=== PATIENT | male | born 1980 | race Asian ===

== ENCOUNTER → 2017-05-31 | Outpatient (CLI) | payer OTHER ==
--- NOTE | 2017-05-31 13:42 | DIAGNOSTIC IMAGING REPORT ---
R KNEE 1 OR 2 VIEWS ROUTINE CLINICAL HISTORY: M25.569 right knee pain COMPARISON: None. DISCUSSION: No fractures or dislocations are visualized. There are no erosive or destructive changes. IMPRESSION: 1. No fractures or dislocations identified 2. No erosive or destructive lesions are visualized Electronically signed by: Theodore Wilson M.D. 05/31/2017 1:41 PM Dictated Date/Time: 05/31/2017 1:40 PM
--- NOTE | 2017-05-31 13:43 | DIAGNOSTIC IMAGING REPORT ---
LEFT KNEE 2 VIEWS HISTORY: M25.569 Knee pain [id number] COMPARISON: None. FINDINGS: There is no fracture or dislocation. Soft tissues are unremarkable. No significant knee effusion. Cartilage spaces are maintained for age. IMPRESSION: Unremarkable left knee by conventional radiographic technique. Electronically signed by: Adonis Verdin M.D. 05/31/2017 1:42 PM Dictated Date/Time: 05/31/2017 1:40 PM
== END | disposition home or self-care (01) ==
LOC: C.RAD1850 13:29
PROVIDERS: ATTEND Internal Medicine
DX: M25.569 Pain in unspecified knee (principal)

== ENCOUNTER 2023-06-13 14:19 | Observation (INO) ==
[2023-06-13] MEDS ORDERED: KETOROLAC TROMETHAMINE 15 MG/ML VIAL IV STA (14:26)
[2023-06-13] MEDS ORDERED: SODIUM CHLORIDE 0.9% 1,000 ML IV STA (14:26)
[2023-06-13] MEDS ORDERED: ONDANSETRON INJ 2 MG/ML 2 ML VIAL IV STA (14:26)
--- NOTE | 2023-06-13 14:26 | ED Triage Note ---
Date of Service June 13, 2023 Provider in Triage Author: Fransisca Munoz History of Present Illness This patient was briefly evaluated while in triage. An abbreviated physical exam was performed. This patient is a 42-year-old Male who presents to the ED for evaluation of abdominal pain. Symptoms started early this morning. Notes pain all over. reports nausea, no vomiting. Denies fever/chills, diarrhea. 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 Physical Exam Constitutional: alert and oriented x3. no acute distress. HEENT: normocephalic, atraumatic. normal conjunctiva.PERRLA. EOM's grossly intact. Respiratory: equal chest rise. normal respiratory effort, no accessory muscle use. Cardiovascular: normal heart sounds without murmur. regular rate and rhythm. MSK: moves all 4 extremities spontaneously Psych:appropriate mood and affect. Initial orders for labs and / or imaging were placed and patient was placed in the waiting area until a bed is available. Please see further documentation for the full ED course.
[2023-06-13 16:24] LABS: Basophils # (auto) 0.03 K/uL (0.00-0.20); Basophils % (auto) 0.3 %; Eosinophils # (auto) 0.02 K/uL (0.00-0.50); Eosinophils % (auto) 0.2 %; Hematocrit (blood only) 40.1 % (42.0-52.0); Hemoglobin 14.5 g/dl (14.0-18.0); Immature Granulocytes # (auto) 0.03 K/uL (0.01-0.20); Immature Granulocytes % (auto) 0.3 %; Lymphocytes # (auto) 1.42 K/uL (1.20-3.40); Lymphocytes % (auto) 11.9 %; Mean Corpuscular Hemoglobin 32.4 pg (25.0-34.0); Mean Corpuscular Hgb Conc 36.2 g/dL (32.0-36.0); Mean Corpuscular Volume 89.7 fL (80.0-100.0); Mean Platelet Volume 9.4 fL (9.4-12.4); Monocytes # (auto) 1.15 K/uL (0.11-0.59); Monocytes % (auto) 9.7 %; Neutrophils # (auto) 9.25 K/uL (1.40-6.50); Neutrophils % (auto) 77.6 %; Platelet Count 326 K/uL (130-400); RDW Standard Deviation 39.8 fL (36.4-46.3); Red Blood Count 4.47 M/uL (4.70-6.10)
[2023-06-13 16:34] LABS: Albumin Globulin Ratio 1.9 (0.9-2); BUN Creatinine Ratio 13.3 (10-20); Bilirubin,Total 0.5 mg/dl (0.2-1.0); Creatinine Clr Calc Pharmacy 115.4 ml/min; Est GFR (African American) 109.8 ml/min; Est GFR (Non-African American) 94.7 ml/min; Globulin 2.7 gm/dl (2.5-4.0); Total Protein 7.7 gm/dl (6.0-8.3)
[2023-06-13] MEDS ORDERED: OPTIRAY 320 500ml IV ONE (17:17)
--- NOTE | 2023-06-13 17:21 | XRay Report ---
XR chest 1V not portable CLINICAL HISTORY: abd pain TECHNIQUE: Single frontal radiograph of the chest was obtained. Comparison: Comparison is made to rib series 04/11/2011 FINDINGS: No lines and tubes are seen. The cardiomediastinal silhouette is normal. The lungs are clear. No evid ence of pleural effusion or pneumothorax. IMPRESSION: No acute chest disease. ACT 112: Negative or not required by law. Electronically signed by: Osmin Pal M.D. 06/13/2023 5:20 PM
--- NOTE | 2023-06-13 18:42 | CT Scan Report ---
CT abd pelvis IV con only CLINICAL HISTORY: generalized abd pain TECHNIQUE: Helical axial images of the abdomen and pelvis were obtained and displayed. Automated dose lowering techniques and/or adjustment according to patient size were utilized for this exam. This e xam was performed with intravenous contrast. CT DOSE: 1516.08 mGy.cm COMPARISON: None available at the time of this dictation. FINDINGS: Lower chest: Bibasilar atelectasis versus scarring is seen. Liver: Unremarkable. No focal lesions are seen. Gallbladder and biliary tree: No calcified gallstones. Normal caliber wall. No intra- or extrahepatic biliary ductal dilation. Pancreas: Unremarkable, no focal lesions. Spleen: Unremarkable. Adrenals: Unremarkable. Kidneys and ureters: Nonobstructive nephrolithiasis is seen. Bladder: Unremarkable. Reproductive organs: Unremarkable. Bowel: Enlarged appendix measures 11 mm with associated stranding. Lymph nodes Retroperitoneal: Unremarkable. Pelvic: Unremarkable. Mesenteric: Subcentimeter lymph nodes are noted. Peritoneum: Normal. Vessels: Unremarkable. Abdominal wall: Unremarkable. Bones: Minimal degenerative changes are seen. IMPRESSION: Findings are compatible with acute appendicitis without evidence of perforation or abscess formation. ACT 112: Negative or not required by law. Electronically signed by: Osmin Pal M.D. 06/13/2023 6:39 PM
[2023-06-13] MEDS ORDERED: MoRPHine SULFATE 4 MG/ML 1 ML CARP\\VIAL IV STA (19:02)
--- NOTE | 2023-06-13 19:10 | Emergency Department Note ---
History of Present Illness General Chief complaint: GI Assessment Stated complaint: ABD PAIN Time Seen by Provider: 06/13/23 18:54 History of Present Illness Maximum Pain Intensity: 8 42-year-old male who presents to the emergency department for evaluation of abdominal pain. Patient states he woke up this morning with generalized abdominal pain around 5 AM. He states it was initially crampy but since being in the emergency department has turned into a sharp pain localized to the right side. He denies associated fevers, nausea/vomiting, diarrhea/constipation, chest pain, shortness of breath, urinary symptoms. He took milk of magnesium prior to arrival. He has not taken anything for his pain. Home Medications Medication Instructions Recorded Confirmed Type dextroamphetamine-amphetamine 20 20 mg PO DAILY PRN ADD #30 tabs 05/31/23 06/13/23 Rx mg tablet (Adderall) dextroamphetamine-amphetamine ER 20 mg PO DAILY #30 caps 05/31/23 06/13/23 Rx 20 mg 24hr capsule,extend release (Adderall XR) Allergies Allergy/AdvReac Type Severity Reaction Status Date / Time clarithromycin [From Biaxin] Allergy Verified 07/03/22 12:42 Past Med/Surg History Medical History (Updated 06/13/23 @ 21:30 by Fransisca Munoz PA-C) Encounter for pre-operative examination ADD (attention deficit disorder) Surgical History No pertinent past surgical history Family History Mother Gastric cancer Grandfather Gastric cancer Denies family history of Colon cancer Ovarian cancer Prostate cancer Myocardial infarction Breast cancer Stroke Social History Smoking Status: Never smoker Age Started Using Tobacco: 17; Age Quit Using Tobacco: 28; packs per day: 1; Cigarettes Per Day: 20 to 30 a day for 11 years; Second Hand Exposure: No; Do You Dip or Chew Tobacco: No; Hx Alcohol Use: Yes Alcohol type: beer, wine and hard liquor Hx Substance Use: No Preferred Language: Tunisian Communication Ability: Effective Visual Impairment: No Limitations Hearing Ability: Normal Sulfuric Acid Plant Operator Required: No marital status: Current Living Situation: Spouse current occupational status: employed 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 Feels Safe at Home: Yes Childhood Exposure to Second-Hand Smoke: No Dental Care, Regularly: Yes Physical Activity Frequency: 3-4 Times per Week Seatbelt Use: always Physical Exam Vital Signs Vital Signs - 24 hr 06/13/23 14:23 06/13/23 19:12 06/13/23 19:16 Temperature 36.7 C Temperature Source Temporal Artery Scan Pulse Rate 83 Pulse Rate [Finger] 82 91 H Pulse Rhythm Respiratory Rate 20 20 18 Respiratory Effort / Characteristics Non-Labored Spontaneous Respiratory Depth Normal Blood Pressure 161/99 H Blood Pressure [Left Arm] 167/103 H 126/98 Blood Pressure Mean 119 Blood Pressure Mean [Left Arm] 124 107 Blood Pressure Position Sitting Pulse Oximetry 98 100 100 Oxygen Delivery Method Room Air Sepsis Recent Fever Within 48 Hours No Sepsis New/Unexplained Change in Mental Status No Sepsis Action Taken by Nursing No Action Required 06/13/23 19:20 06/13/23 19:34 Temperature Temperature Source Pulse Rate 87 Pulse Rate [Finger] 90 Pulse Rhythm Regular Respiratory Rate 18 20 Respiratory Effort / Characteristics Respiratory Depth Blood Pressure Blood Pressure [Left Arm] 170/93 H Blood Pressure Mean Blood Pressure Mean [Left Arm] 118 Blood Pressure Position Pulse Oximetry 99 99 Oxygen Delivery Method Room Air Sepsis Recent Fever Within 48 Hours Sepsis New/Unexplained Change in Mental Status Sepsis Action Taken by Nursing Constitutional: alert and oriented x3. no acute distress. nontoxic Respiratory: lungs are clear to auscultation without wheezes, rhonchi, or rales bilaterally. equal chest rise. normal respiratory effort, no accessory muscle use. Cardiovascular: normal heart sounds without murmur. regular rate and rhythm. GI: abdomen is soft, nondistended. Tender to palpation in the right lower quadrant.No palpable masses. No rebound tenderness or guarding. No CVA tenderness MSK: Moves all 4 extremities spontaneously Peripheral vascular: extremities warm and well perfused Psych:appropriate mood and affect. Course Administered Medications Discontinued Medications Sodium Chloride (Nss) 1,000 mls @ 999 mls/hr IV .Q1H1M STA Stop: 06/13/23 15:26 Last Infusion: 06/13/23 19:40 Dose: Infused Documented By: Admin: 06/13/23 15:56 Dose: 999 mls/hr Documented By: ASHANTI Piperacillin Sod/Tazobactam Sod (Zosyn) 4.5 gm in 100 mls @ 200 mls/hr IV NOW ONE Stop: 06/13/23 19:47 Last Infusion: 06/13/23 20:31 Dose: Infused Documented By: Admin: 06/13/23 19:34 Dose: 200 mls/hr Documented By: TESSIE Ioversol (Optiray 320 500ml) 86 ml IV ONCE ONE Stop: 06/13/23 17:18 Last Admin: 06/13/23 17:18 Dose: 86 ml Documented By: GISELA Ketorolac Tromethamine (Ketorolac Tromethamine 15 Mg/Ml Vial) 15 mg IV NOW STA Stop: 06/13/23 14:27 Last Admin: 06/13/23 15:54 Dose: 15 mg Documented By: ASHANTI Morphine Sulfate (Morphine Sulfate 4 Mg/Ml 1 Ml Carp\Vial) 4 mg IV NOW STA Stop: 06/13/23 19:03 Last Admin: 06/13/23 19:13 Dose: 4 mg Documented By: NICKY Ondansetron HCl (Ondansetron Inj 2 Mg/Ml 2 Ml Vial) 4 mg IV NOW STA Stop: 06/13/23 14:27 Last Admin: 06/13/23 15:54 Dose: 4 mg Documented By: ASHANTI Medical Decision Making Differential Diagnosis Appendicitis, testicular torsion, infections, diverticulitis, UTI, obstruction, mesenteric ischemia, aortic pathology, inflammatory bowel disease, renal colic, PUD, pancreatitis, biliary pathology, hernia, volvulus, constipation, as well as other pathologies. Laboratory Data Attestation: I reviewed the patient's lab results. 06/13/23 15:58 06/13/23 15:58 Lab Results 06/13/23 Range/Units 15:58 WBC 11.90 H (4.8-10.8) K/ul RBC 4.47 L (4.70-6.10) M/uL Hgb 14.5 (14.0-18.0) g/dl Hct 40.1 L (42.0-52.0) % MCV 89.7 (80.0-100.0) fL MCH 32.4 (25.0-34.0) pg MCHC 36.2 H (32.0-36.0) g/dL RDW Std Deviation 39.8 (36.4-46.3) fL RDW Coeff of Doni 12.0 (11.5-14.5) % Plt Count 326 (130-400) K/uL MPV 9.4 (9.4-12.4) fL Immature Gran % (Auto) 0.3 % Neut % (Auto) 77.6 % Lymph % (Auto) 11.9 % [place] % (Auto) 9.7 % Eos % (Auto) 0.2 % Baso % (Auto) 0.3 % Neut # (Auto) 9.25 H (1.40-6.50) K/uL Lymph # (Auto) 1.42 (1.20-3.40) K/uL [place] # (Auto) 1.15 H (0.11-0.59) K/uL Eos # (Auto) 0.02 (0.00-0.50) K/uL Baso # (Auto) 0.03 (0.00-0.20) K/uL Immature Gran # (Auto) 0.03 (0.01-0.20) K/uL Sodium 139 (136-145) mmol/L Potassium 4.0 (3.5-5.1) mmol/L Chloride 102 (98-107) mmol/L Carbon Dioxide 30 (21-32) mmol/L Anion Gap 7 (3-11) BUN 13 (6-23) mg/dl Creatinine 0.98 (0.6-1.4) mg/dl Est Cr Clr Drug Dosing 115.4 ml/min Est GFR ( Amer) 109.8 ml/min Est GFR (Non-Af Amer) 94.7 ml/min BUN/Creatinine Ratio 13.3 (10-20) Glucose 113 H (70-99(Fasting)) mg/dl Calcium 10.0 (8.6-10.3) mg/dl Total Bilirubin 0.5 (0.2-1.0) mg/dl AST 17 (13-39) U/L ALT 21 (7-52) U/L Alkaline Phosphatase 68 (34-104) U/L Total Protein 7.7 (6.0-8.3) gm/dl Albumin 5.0 (3.4-5.0) gm/dl Globulin 2.7 (2.5-4.0) gm/dl Albumin/Globulin Ratio 1.9 (0.9-2) Lipase 8 L (11-82) U/L Imaging Data Radiologist's Impression: Abdomen/Pelvis CT 06/13/23 14:26 CT abd pelvis IV con only CLINICAL HISTORY: generalized abd pain TECHNIQUE: Helical axial images of the abdomen and pelvis were obtained and displayed. Automated dose lowering techniques and/or adjustment according to patient size were utilized for this exam. This exam was performed with intravenous contrast. CT DOSE: 1516.08 mGy.cm COMPARISON: None available at the time of this dictation. FINDINGS: Lower chest: Bibasilar atelectasis versus scarring is seen. Liver: Unremarkable. No focal lesions are seen. Gallbladder and biliary tree: No calcified gallstones. Normal caliber wall. No intra- or extrahepatic biliary ductal dilation. Pancreas: Unremarkable, no focal lesions. Spleen: Unremarkable. Adrenals: Unremarkable. Kidneys and ureters: Nonobstructive nephrolithiasis is seen. Bladder: Unremarkable. Reproductive organs: Unremarkable. Bowel: Enlarged appendix measures 11 mm with associated stranding. Lymph nodes Retroperitoneal: Unremarkable. Pelvic: Unremarkable. Mesenteric: Subcentimeter lymph nodes are noted. Peritoneum: Normal. Vessels: Unremarkable. Abdominal wall: Unremarkable. Bones: Minimal degenerative changes are seen. IMPRESSION: Findings are compatible with acute appendicitis without evidence of perforation or abscess formation. ACT 112: Negative or not required by law. Electronically signed by: Osmin Pal M.D. 06/13/2023 6:39 PM Chest X-Ray 06/13/23 14:26 XR chest 1V not portable CLINICAL HISTORY: abd pain TECHNIQUE: Single frontal radiograph of the chest was obtained. Comparison: Comparison is made to rib series 04/11/2011 FINDINGS: No lines and tubes are seen. The cardiomediastinal silhouette is normal. The lungs are clear. No evidence of pleural effusion or pneumothorax. IMPRESSION: No acute chest disease. ACT 112: Negative or not required by law. Electronically signed by: Osmin Pal M.D. 06/13/2023 5:20 PM MDM Narrative 42-year-old male who presents to the emergency department for evaluation of abdominal pain. Reviewed pertinent visits and past medical history performed. Vital signs in ED stable, afebrile. Patient was seen and evaluated as above. IV access was established and labs and imaging were obtained. CBC demonstrates mild leukocytosis of 11.9 with left shift. No acute anemia. CMP without significant electrolyte abnormalities. Renal function within normal limits. LFTs and lipase unremarkable. CT of the abdomen/pelvis was performed and demonstrates acute appendicitis without evidence of perforation or abscess. On exam, patient is nontoxic-appearing in no acute distress. He is diffusely tender throughout the abdomen, worse in the right lower quadrant. No rebound tenderness or guarding. He was initially medicated with IV Toradol, Zofran and 1 L of fluids. Initial orders and medications were ordered while patient was evaluated in triage during a high-volume time. While patient was in the waiting room, CT results had come back and when finally read patient was immediately pulled into a treatment room and updated on exam findings and test results. He did note some mild improvement with the Toradol but continued with abdominal pain. Repeat abdominal exam was nonsurgical. He was informed of findings consistent with acute appendicitis and need for surgical intervention. He was agreeable. Case was discussed with on-call general surgery PA-Jeremy, Jordon Snider, who came to evaluate patient at bedside and recommended emergent surgical intervention. Please see his note for full details and surgical and postoperative treatment plan. Patient was medicated with IV morphine and Zosyn and requested general surgery for preop antibiotics. Patient was taken to the OR in stable condition. Impression & Plan Acute appendicitis Discharge Plan Visit Data Chief Complaint: GI Assessment Stated Complaint: ABD PAIN ED Provider: Shahriar Chen ED Midlevel Provider: Fransisca Munoz Discharge Problem: Acute appendicitis Patient Disposition: Being Evaluated by Surgeon Discharge Instructions Interventions: ED Discharge Assessment Last Done: 06/13/23 20:31
[2023-06-13] MEDS ORDERED: PIPERACILLIN/TAZOBACTAM 4.5 GM/100 ML BAG IV ONE (19:18)
[2023-06-13] MEDS ORDERED: ONDANSETRON INJ 2 MG/ML 2 ML VIAL IV PRN ×2 (19:46→20:49)
[2023-06-13] MEDS ORDERED: SUCCINYLCHOLINE CHLORIDE 20 MG/ML 10 ML VIAL IV ONE (19:46)
[2023-06-13] MEDS ORDERED: ACETAMINOPHEN 1,000 MG/100 ML VIAL IV PRN (19:46)
[2023-06-13] MEDS ORDERED: DEXAMETHASONE SOD INJ 4 MG/ML VIAL ONE (19:46)
[2023-06-13] MEDS ORDERED: PROPOFOL IV EMULSION 10 MG/ML 20 ML VIAL IV ONE (19:46)
[2023-06-13] MEDS ORDERED: LIDOCAINE 2% 2 ML VIAL/AMP(20MG/ML) INFIL ONE (19:46)
[2023-06-13] MEDS ORDERED: ONDANSETRON INJ 2 MG/ML 2 ML VIAL ONE (19:46)
[2023-06-13] MEDS ORDERED: KETOROLAC 30 MG/ML VIAL ONE (19:46)
[2023-06-13] MEDS ORDERED: ROCURONIUM BROMIDE 10 MG/ML 5 ML VIAL IV ONE (19:46)
[2023-06-13] MEDS ORDERED: SUGAMMADEX SODIUM 200 MG/2 ML VIAL IV ONE (19:50)
[2023-06-13] MEDS ORDERED: fentaNYL citrate PF 100 MCG/2 ML VIAL ONE (19:51)
[2023-06-13] MEDS ORDERED: MIDAZOLAM HCL 1 MG/ML 2ML VIAL ONE (19:51)
--- NOTE | 2023-06-13 19:56 | History & Physical Report ---
Date of Service June 13, 2023 Assessment & Plan (1) Acute appendicitis: Plan: Due to the patient's imaging, laboratory findings, as well as presenting symptomatology we will proceed as follows: Analgesia will be provided Antiemetics to be provided N.p.o. status will be implemented IV fluids to be utilized for hydration Patient be given antibioticshe is already received a dose of Zosyn in the emergency department We are tentatively planning on performing an appendectomy with Dr. Portillo this evening. I discussed the risks, benefits, alternatives, and expected postoperative course with the patient and he is willing to proceed Additional recommendations were forthcoming based on operative findings and his postoperative recovery thereafter as above. discussed options/risks. bleeding/infection/injury to an organ/dvt/pe/mi/cva etc... questions answered. will proceed tonight with lap appy. pt agreeable. History of Present Illness Chief Complaint: Acute appendicitis Primary Care Provider: Merlin Gan MD This is a 42-year-old male who presented to the emergency department secondary to abdominal pain that began at approximate 6:00 AM this morning. Patient noted that the pain was little in a generalized fashion throughout his abdomen but is now mostly confined to the right lower quadrant. He did take some milk of magnesia at approximate 2:00 PM with no relief. He has never had any abdominal surgeries before. With his current litany of symptoms he denies any fevers, shakes, or chills. He denies any nausea or vomiting. He does not note any modifying factors to his pain. The patient does note he has not had much in the way of oral intake today other than a few sips of water and milk of magnesia as described above. Since arrival to the hospital the patient has had labs and imaging which independent reviewed. The patient had a CT scan of the abdomen pelvis that kelvin wed patient had findings consistent with acute appendicitis without evidence of perforation the appendix was noted to be enlarged measuring approximately 11 mm with associated fat stranding. Chest x-ray was performed that showed no evidence of pneumonia. Labs include a CBC her white blood cell count was elevated 11.9. Hemoglobin was normal. His hematocrit was slightly low at 40.1. Platelet count was normal. Chemistry profile showed sodium, potassium, BUN, and creatinine were all normal. At the time of my interview the patient was resting comfortably in bed he was in no distress Allergies Allergy/AdvReac Type Severity Reaction Status Date / Time clarithromycin [From Biaxin] Allergy Verified 07/03/22 12:42 Home Medications Medication Instructions Recorded Confirmed Type dextroamphetamine-amphetamine 20 20 mg PO DAILY PRN ADD #30 tabs 05/31/2306/13 Rx mg tablet (Adderall) dextroamphetamine-amphetamine ER 20 mg PO DAILY #30 caps 05/31/23 06/13/23 Rx 20 mg 24hr capsule,extend release (Adderall XR) Past Med/Surg History Medical History (Updated 06/13/23 @ 19:55 by Rodney Bowers PA-C) ADD (attention deficit disorder) Surgical History No pertinent past surgical history Family History Mother Gastric cancer Grandfather Gastric cancer Denies family history of Colon cancer Ovarian cancer Prostate cancer Myocardial infarction Breast cancer Stroke Social History Smoking Status: Never smoker Age Started Using Tobacco: 17; Age Quit Using Tobacco: 28; packs per day: 1; Cigarettes Per Day: 20 to 30 a day for 11 years; Second Hand Exposure: No; Do You Dip or Chew Tobacco: No; Hx Alcohol Use: Yes Alcohol type: beer, wine and hard liquor Hx Substance Use: No Preferred Language: Pakistani Communication Ability: Effective Visual Impairment: No Limitations Hearing Ability: Normal Deputy Commonwealth'S Attorney Required: No marital status: Current Living Situation: Spouse current occupational status: employed 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 Feels Safe at Home: Yes Childhood Exposure to Second-Hand Smoke: No Dental Care, Regularly: Yes Physical Activity Frequency: 3-4 Times per Week Seatbelt Use: always Review of Systems Constitutional: no fever and no chills Eyes: + corrective lenses Ear, Nose, Mouth, Throat: no hearing loss Respiratory: no cough and no dyspnea Cardiovascular: no chest pain Gastrointestinal: as per Subjective / HPI Genitourinary: no dysuria Musculoskeletal: no back pain Integumentary: no rash Neurologic: no localized weakness Physical Exam Constitutional: WD/WN, vitals as above Eyes: Wears glasses ENMT: Ears: no hearing impairment and no external ear abnormality Mouth: no oropharynx abnormality Neck: trachea midline Respiratory: normal respiratory effort, lungs clear to auscultation Cardiovascular: Rate/Rhythm: regular rate and regular rhythm Gastrointestinal (Abdomen): Abdomen is soft with mild distention. Bowel sounds are hypoactive. The patient did have pain with palpation greatest in the right lower quadrant over McBurney's Musculoskeletal: No calf tenderness Skin: no rashes Neurologic: moves all extremities Psychiatric: A+Ox3, euthymic affect Results & Data Results & Data Vital Signs (Past 12 Hours) Vital Signs Temp Pulse Pulse Resp BP BP Pulse Ox 06/13/23 19:34 87 20 99 06/13/23 19:20 90 18 170/93 H 99 06/13/23 19:16 91 H 18 126/98 100 06/13/23 19:12 82 20 167/103 H 100 06/13/23 14:23 36.7 C 83 20 161/99 H 98 O2 Del Method 06/13/23 19:34 Room Air 06/13/23 19:20 06/13/23 19:16 06/13/23 19:12 06/13/23 14:23 Room Air PG Care Time/CCT Total # of Minutes Spent Total Time Spent with Patient: Total time spent is greater than 50% in coordination of care (as documented) at patient's floor/unit and/or counseling patient: Coding Level of Care Code 70527 INT INP/OBS CARE 3/75MIN Diagnoses Acute appendicitis K35.80
[2023-06-13] MEDS ORDERED: PROMETHAZINE HCL 6.25 MG in SODIUM CHLORIDE 0.9% 50 ML IV PRN (20:49)
[2023-06-13] MEDS ORDERED: ePHEDrine sulfate 50 MG/ML AMP IV PRN (20:49)
[2023-06-13] MEDS ORDERED: ATROPINE SULFATE 0.1 MG/ML 10ML SYR IV PRN (20:49)
[2023-06-13] MEDS ORDERED: HYDROmorphone INJ 2 MG/ML SYR/VIAL IV PRN (20:49)
[2023-06-13] MEDS ORDERED: BUPIVACAINE/EPINEPHRINE 0.5% MPF 1:200,000 30 ML VIAL ONE (20:49)
[2023-06-13] MEDS ORDERED: fentaNYL citrate PF 100 MCG/2 ML VIAL IV PRN (20:49)
--- NOTE | 2023-06-13 20:50 | Anesthesiology Consultation ---
Date of Service June 13, 2023 Assessment & Plan (1) Encounter for pre-operative examination: Chart Review Chart Review: Acceptable Risk for Surgery and Patient NOT seen in Pre Admission Testing Consults Requested none History Surgery Operation Date: 06/13/23 21:30 Proposed Procedures p Laparoscopic Appendectomy, possible open - Emigdio Portillo, DO Height/Weight Height: 5 ft 10 in Weight: 98.2 kg Allergies Allergy/AdvReac Type Severity Reaction Status Date / Time clarithromycin [From Biaxin] Allergy Verified 07/03/22 12:42 Medications Home Medications Medication Instructions Recorded Confirmed Last Taken dextroamphetamine-amphetamine 20 20 mg PO DAILY PRN ADD #30 tabs 05/31/23 06/13/23 Unknown mg tablet (Adderall) dextroamphetamine-amphetamine ER 20 mg PO DAILY #30 caps 05/31/23 06/13/23 Unknown 20 mg 24hr capsule,extend release (Adderall XR) NPO Date Last Intake of Fluids: 06/13/23 Time Last Intake of Fluids: 04:00 Date Last Intake of Solids: 06/13/23 Time Last Intake of Solids: 04:00 Past Medical History Medical History (Updated 06/13/23 @ 20:50 by Chao Rivers MD) Encounter for pre-operative examination ADD (attention deficit disorder) Past Family History Family History Mother Gastric cancer Grandfather Gastric cancer Denies family history of Colon cancer Ovarian cancer Prostate cancer Myocardial infarction Breast cancer Stroke Past Surgical History Surgical History No pertinent past surgical history Social History Smoking Status: Never smoker tobacco type: cigarettes Smoking cigarettes per day: 20 to 30 a day for 11 years Do You Dip or Chew Tobacco: No Hx Alcohol Use: Yes Alcohol type: beer, wine and hard liquor Hx Substance Use: No Physical Exam Vital Signs Last Vital Signs Temp 36.7 C 06/13/23 14:23 Pulse 87 06/13/23 19:34 Resp 20 06/13/23 19:34 BP 170/93 H 06/13/23 19:20 Pulse Ox 99 06/13/23 19:34 O2 Del Method Room Air 06/13/23 19:34 Testing Laboratory Results 06/13/23 15:58 06/13/23 15:58
[2023-06-13] MEDS ORDERED: diphenhydrAMINE 50 MG/ML VIAL ONE (21:35)
--- NOTE | 2023-06-13 22:15 | Anesthesiology Progress Note ---
Date of Service June 13, 2023 Anesthesia Post Procedure Vital Signs Vital Signs: Temp Pulse Pulse Resp BP BP Pulse Ox 06/13/23 19:34 87 20 99 06/13/23 19:20 90 18 170/93 H 99 06/13/23 19:16 91 H 18 126/98 100 06/13/23 19:12 82 20 167/103 H 100 06/13/23 14:23 36.7 C 83 20 161/99 H 98 O2 Del Method 06/13/23 19:34 Room Air 06/13/23 19:20 06/13/23 19:16 06/13/23 19:12 06/13/23 14:23 Room Air Pain Intensity Right Lower Abdomen: Pain Intensity: 7 Transfer of Care Handoff Completed per policy Notes Mental Status: alert / awake / arousable and participated in evaluation Patient Amnestic to Procedure: Yes Nausea / Vomiting: adequately controlled Pain: adequately controlled Airway Patency, RR, SpO2: stable & adequate BP & HR: stable & adequate Hydration State: stable & adequate Anesthetic Complications: no major complications apparent and Pt Satisfied with anesthetic care
--- NOTE | 2023-06-13 22:17 | Operative Report ---
PG Post Operative Report Pre & Post Diagnosis Operation Date: 06/13/23 21:30 Pre-Op Diagnosis: Acute appendicitis Post-Op Diagnosis: Acute appendicitis I identified the patient and participated in the time-out.: Yes Procedure Operation Date: 06/13/23 21:30 Actual Procedures p Laparoscopic Appendectomy, Enterolysis(Not Applicable) - Emigdio Portillo DO Surgeon Emigdio Portillo DO Can Slider sonal Bowers Estimated Blood Loss 10 Findings Consistent with Post-Op Diagnosis Specimens appendix Description of Procedure After informed consent was obtained the patient was taken to the operating room and placed in supine position. After successful intubation a Childers catheter was placed and the left arm was tucked. A Childers catheter was inserted sterilely. I began by making a periumbilical incision with an 11 blade scalpel and carried this down through the soft tissue using electrocautery. The anterior rectus fascia was opened using electrocautery and 2 #0 Vicryl stay sutures were placed. The peritoneum was elevated using hemostats and incised under direct vision using a Metzenbaum scissor. A finger sweep was performed. A 12 mm Reddy trocar was placed and the abdomen was insufflated to 18 mmHg. A laparoscope was inserted and the abdomen was examined in 360. A suprapubic 5 mm port and a left lower quadrant 12 mm port were placed under direct vision. The patient was air planed to the left as well as placed in a slight Trendelenburg position. We began by looking in the right lower quadrant. We were able to readily identify the appendix and it was grossly inflamed. It had not perforated. There is a small amount of purulent fluid in the right lower quadrant and the pelvis. We immediately irrigated and suctioned this out. There were adhesions from the terminal ileum to the sidewall. I had to take these down using a laparoscopic scissor so that I could visualize the appendix/base of the cecum. Once I divided the adhesions, I was able to use primarily blunt dissection to pull the appendix away from the right lower quadrant sidewall. I was then able to use a DAVE purple cartridge stapler to transect both the mesentery of the appendix as well as the appendix itself at its base with the cecum. It was then placed into an Endo Catch bag and removed from the camera port site. We thoroughly ir rigated the right lower quadrant as well as the pelvis. There was adequate hemostasis. I ran the small bowel backwards from the terminal ileum for about 6 feet all of which was normal. All the peritoneal surfaces were normal. Small/ large bowel, liver, stomach etc. all appeared grossly normal. We did a final irrigation and then removed all the trochars and desufflated the abdomen. The fascia of the camera port as well as the left lower quadrant were closed using 0 Vicryl in [id number] fashion. Wounds were all irrigated and closed using 4-0 Monocryl. Marcaine was injected around them for postoperative analgesia and skin glue used as a dressing. The patient was awakened extubated and transferred to recovery in stable condition. My physician's school health assistant was present through the entire case. he assisted with prepping the patient and helped with exposure for port placement, helped run the camera and helped with fascial/wound closure at the end of the procedure as well as dressing placement. I attest to the content of the Intraoperative Record and any orders documented therein. Any exceptions are noted below. I attest to the content of the Intraoperative Record and any orders documented therein. Any exceptions are noted below.
[2023-06-13] MEDS ORDERED: DEXTROAMPHETAMINE/AMPHETAMINE IR 20 MG TAB PO PRN (23:02)
[2023-06-13] MEDS: SODIUM CHLORIDE 0.9% 1,000 ML IV SCH (23:16)
[2023-06-14] MEDS: PIPERACILLIN/TAZOBACTAM 4.5 GM in DEXTROSE 5% MINI-B 100 ML IV SCH ×3 (01:05→17:53)
[2023-06-14] MEDS: MoRPHine SULFATE 4 MG/ML 1 ML CARP\\VIAL IV PRN ×2 (01:08→05:12)
[2023-06-14] MEDS: SODIUM CHLORIDE 0.9% 1,000 ML IV SCH ×2 (05:15→13:41)
[2023-06-14 06:32] LABS: Basophils # (auto) 0.01 K/uL (0.00-0.20); Basophils % (auto) 0.1 %; Hematocrit (blood only) 32.4 % (42.0-52.0); Hemoglobin 11.1 g/dl (14.0-18.0); Immature Granulocytes # (auto) 0.07 K/uL (0.01-0.20); Immature Granulocytes % (auto) 0.5 %; Lymphocytes # (auto) 0.62 K/uL (1.20-3.40); Lymphocytes % (auto) 4.7 %; Mean Corpuscular Hemoglobin 31.9 pg (25.0-34.0); Mean Corpuscular Hgb Conc 34.3 g/dL (32.0-36.0); Mean Corpuscular Volume 93.1 fL (80.0-100.0); Mean Platelet Volume 9.2 fL (9.4-12.4); Monocytes # (auto) 1.09 K/uL (0.11-0.59); Monocytes % (auto) 8.2 %; Neutrophils # (auto) 11.47 K/uL (1.40-6.50); Neutrophils % (auto) 86.5 %; Platelet Count 268 K/uL (130-400); RDW Coefficient of Variation 12.3 % (11.5-14.5); Red Blood Count 3.48 M/uL (4.70-6.10); White Blood Count 13.26 K/ul (4.8-10.8)
[2023-06-14 06:39] LABS: BUN Creatinine Ratio 14.3 (10-20); Calcium 8.6 mg/dl (8.6-10.3); Creatinine Clr Calc Pharmacy 122.5 ml/min; Est GFR (African American) 120.1 ml/min; Est GFR (Non-African American) 103.6 ml/min; Potassium 4.2 mmol/L (3.5-5.1)
[2023-06-14] MEDS ORDERED: oxyCODONE HCL IR 5 MG TAB (IMMEDIATE RELEASE) PO PRN ×2 (07:38→08:01)
--- NOTE | 2023-06-14 08:05 | Surgery Progress Note ---
Date of Service June 14, 2023 Assessment & Plan (1) Acute appendicitis: Plan: s/p lap appendectomy wbc 13, vitals stable will add PO pain meds and make IV APAP standing for now adv diet as tolerates if pain controlled and diet tolerated will consider dispo later today f/u in clinic with dr. baeza in 2 weeks doing ok. has not been out of bed yet. still pretty uncomfortable added oral pain meds and ibuprofen. will re-evaluate later today but likely will need an additional day/not ready for d/c Admission and Anticipated Discharge Date Admission Date: June 13, 2023 Subjective Patient having some expected post op pain this AM, controlled with prn meds. Has been taking in clears, no n/v. Voiding well. Physical Exam Physical Exam: awake/alert, no distress Gastrointestinal (Abdomen): Inspection/Auscultation: + abdomen distended (mild) and + abdominal surgical incision (c/d/i with skin glue, some ecchymosis of umbilical incision) Percussion/Palpation: + abdomen tender (joie- incisional discomfort) and abdomen soft Results & Data Vital Signs (Past 12 Hours) Vital Signs Temp Pulse Pulse Resp BP Pulse Ox O2 Del Method 06/14/23 07:35 37.2 C 94 H 12 117/78 96 Room Air 06/14/23 02:30 37.1 C 86 18 128/81 97 Room Air 06/14/23 01:00 36.8 C 81 18 117/67 97 Room Air 06/14/23 00:01 37 C 91 H 16 133/75 97 Room Air 06/13/23 23:20 36.9 C 84 16 130/75 95 Room Air 06/13/23 22:45 36.9 C 86 18 145/78 H 95 Room Air 06/13/23 22:45 36.9 C 86 18 145/78 H 95 Room Air 06/13/23 22:35 36.9 C 96 H 18 138/82 94 Room Air 06/13/23 22:25 88 15 139/75 100 Oxymask 06/13/23 22:15 101 H 20 139/84 100 Oxymask 06/13/23 22:09 36.7 C 108 H 17 157/74 H 100 Oxymask O2 Flow Rate 06/14/23 07:35 06/14/23 02:30 06/14/23 01:00 06/14/23 00:01 06/13/23 23:20 06/13/23 22:45 06/13/23 22:45 06/13/23 22:35 06/13/23 22:25 9 06/13/23 22:15 9 06/13/23 22:09 9 PG Care Time/CCT Total # of Minutes Spent Total Time Spent with Patient: Total time spent is greater than 50% in coordination of care (as documented) at patient's floor/unit and/or counseling patient: Coding Level of Care Code 85136 Post Operative Follow-Up Diagnoses Acute appendicitis K35.80
[2023-06-14] MEDS: ACETAMINOPHEN 1,000 MG/100 ML VIAL IV SCH ×2 (09:24→17:32)
[2023-06-14] MEDS: DEXTROAMPHETAMINE/AMPHETAMINE ER 20 MG CAP PO SCH (09:38)
[2023-06-14] MEDS: IBUPROFEN 600 MG TAB PO SCH ×2 (10:35→17:53)
[2023-06-14 12:02] LABS: Appearance Urine Clear (Clear); Bilirubin Urine Negative (Negative); Blood Urine Negative (Negative); Color Urine Yellow; Glucose Urine UA Negative (Negative); Ketones Urine Negative (Negative); Leukocyte Esterase Urine Negative (Negative); Nitrite Urine Negative (Negative); Protein Urine Negative (Negative); Specific Gravity Urine 1.005 (1.000-1.030); Urobilinogen Urine Negative (Negative); pH Urine 6.5 (4.5-7.5)
--- NOTE | 2023-06-14 19:44 | Electrocardiogram Report ---
Test Reason : Blood Pressure : / mmHG Vent. Rate : 080 BPM Atrial Rate : 080 BPM P-R Int : 172 ms QRS Dur : 080 ms QT Int : 360 ms P-R-T Axes : 039 038 050 degrees QTc Int : 415 ms Normal sinus rhythm Normal ECG No previous ECGs available Confirmed by Abraham White ([id number]) on 06/14/2023 7:44:07 PM Referred By: REFERRED SELF Confirmed By:Patricio White
[2023-06-15] MEDS: SODIUM CHLORIDE 0.9% 1,000 ML IV SCH (00:02)
[2023-06-15] MEDS: ACETAMINOPHEN 1,000 MG/100 ML VIAL IV SCH ×2 (00:03→07:43)
[2023-06-15] MEDS: IBUPROFEN 600 MG TAB PO SCH ×2 (01:07→10:12)
[2023-06-15] MEDS: PIPERACILLIN/TAZOBACTAM 4.5 GM in DEXTROSE 5% MINI-B 100 ML IV SCH ×2 (01:08→10:05)
--- NOTE | 2023-06-15 07:30 | Surgery Progress Note ---
Date of Service June 15, 2023 Assessment & Plan (1) Acute appendicitis: Plan: POD#2 lap appendectomy CBC is pending this AM Pt feels improved since yesterday, pain manageable on current regimen, diet tolerated incisions c/d/i will anticipate dispo to home today pending blood work okay dispo instructions reviewed, f/u in clinic with Dr. Portillo in 2 weeks as above repeat H/H stable 8.7 ok for d/c instructions given. Admission and Anticipated Discharge Date Admission Date: June 13, 2023 Subjective Patient reports feeling well, his pain is improving. He is tolerating a diet, no n/v. Ambulating the halls. Voiding. Physical Exam Physical Exam: awake/alert, no distress Gastrointestinal (Abdomen): Inspection/Auscultation: + abdominal surgical incision (c/d/i with some ecchymosis around umbilical incision) Percussion/Palpation: + abdomen tender (expected joie incisional discomfort) and abdomen soft; no guarding Results & Data Vital Signs (Past 12 Hours) Vital Signs Temp Pulse Resp BP Pulse Ox O2 Del Method 06/15/23 07:06 36.6 C 75 16 116/65 96 Room Air PG Care Time/CCT Total # of Minutes Spent Total Time Spent with Patient: Total time spent is greater than 50% in coordination of care (as documented) at patient's floor/unit and/or counseling patient: Coding Level of Care Code 41790 Post Operative Follow-Up Diagnoses Acute appendicitis K35.80
[2023-06-15 07:40] LABS: Basophils # (auto) 0.03 K/uL (0.00-0.20); Basophils % (auto) 0.4 %; Eosinophils # (auto) 0.05 K/uL (0.00-0.50); Eosinophils % (auto) 0.6 %; Hemoglobin 8.8 g/dl (14.0-18.0); Immature Granulocytes # (auto) 0.03 K/uL (0.01-0.20); Immature Granulocytes % (auto) 0.4 %; Lymphocytes # (auto) 2.13 K/uL (1.20-3.40); Lymphocytes % (auto) 26.6 %; Mean Corpuscular Hemoglobin 32.6 pg (25.0-34.0); Mean Corpuscular Hgb Conc 35.2 g/dL (32.0-36.0); Mean Corpuscular Volume 92.6 fL (80.0-100.0); Mean Platelet Volume 9.3 fL (9.4-12.4); Monocytes # (auto) 0.74 K/uL (0.11-0.59); Monocytes % (auto) 9.3 %; Neutrophils # (auto) 5.02 K/uL (1.40-6.50); Neutrophils % (auto) 62.7 %; Platelet Count 218 K/uL (130-400); RDW Coefficient of Variation 12.1 % (11.5-14.5); RDW Standard Deviation 40.9 fL (36.4-46.3)
[2023-06-15] MEDS: DEXTROAMPHETAMINE/AMPHETAMINE ER 20 MG CAP PO SCH (08:30)
[2023-06-15 12:15] LABS: Basophils # (auto) 0.03 K/uL (0.00-0.20); Basophils % (auto) 0.4 %; Eosinophils # (auto) 0.07 K/uL (0.00-0.50); Hematocrit (blood only) 25.2 % (42.0-52.0); Hemoglobin 8.7 g/dl (14.0-18.0); Immature Granulocytes # (auto) 0.03 K/uL (0.01-0.20); Immature Granulocytes % (auto) 0.4 %; Lymphocytes # (auto) 1.36 K/uL (1.20-3.40); Lymphocytes % (auto) 19.4 %; Mean Corpuscular Hemoglobin 31.9 pg (25.0-34.0); Mean Corpuscular Hgb Conc 34.5 g/dL (32.0-36.0); Mean Corpuscular Volume 92.3 fL (80.0-100.0); Mean Platelet Volume 9.1 fL (9.4-12.4); Monocytes # (auto) 0.71 K/uL (0.11-0.59); Monocytes % (auto) 10.1 %; Neutrophils # (auto) 4.82 K/uL (1.40-6.50); Neutrophils % (auto) 68.7 %; Platelet Count 217 K/uL (130-400); RDW Coefficient of Variation 12.2 % (11.5-14.5); RDW Standard Deviation 40.9 fL (36.4-46.3); Red Blood Count 2.73 M/uL (4.70-6.10); White Blood Count 7.02 K/ul (4.8-10.8)
--- NOTE | 2023-06-18 12:09 | Discharge Summary ---
Date of Service June 15, 2023 Admission HPI Per Admitting Provider This is a 42-year-old male who presented to the emergency department secondary to abdominal pain that began at approximate 6:00 AM this morning. Patient noted that the pain was little in a generalized fashion throughout his abdomen but is now mostly confined to the right lower quadrant. He did take some milk of magnesia at approximate 2:00 PM with no relief. He has never had any abdominal surgeries before. With his current litany of symptoms he denies any fevers, shakes, or chills. He denies any nausea or vomiting. He does not note any modifying factors to his pain. The patient does note he has not had much in the way of oral intake today other than a few sips of water and milk of magnesia as described above. Since arrival to the hospital the patient has had labs and imaging which independent reviewed. The patient had a CT scan of the abdomen pelvis that showed patient had findings consistent with acute appendicitis without evidence of perforation the appendix was noted to be enlarged measuring approximately 11 mm with associated fat stranding. Chest x-ray was performed that showed no evidence of pneumonia. Labs include a CBC her white blood cell count was elevated 11.9. Hemoglobin was normal. His hematocrit was slightly low at 40.1. Platelet count was normal. Chemistry profile showed sodium, potassium, BUN, and creatinine were all normal. At the time of my interview the patient was resting comfortably in bed he was in no distress Principal Diagnosis acute appendicitis Discharge Exam awake/alert, no distress Gastrointestinal (Abdomen) Inspection/Auscultation: + abdomen distended (mild) and + abdominal surgical in cision (c/d/i with some ecchymosis around umbilical incision) Percussion/Palpation: + abdomen tender (expected joie incisional discomfort) and abdomen soft; no guarding Discharge Data Allergies Allergy/AdvReac Type Severity Reaction Status Date / Time clarithromycin [From Biaxin] Allergy Unknown CAN'T Verified 06/15/23 22:03 REMEMBER Procedures Performed Operation Date: 06/13/23 21:30 Actual Procedures p Laparoscopic Appendectomy, Enterolysis(Not Applicable) - Emigdio Portillo, Ordered Studies 06/13/23 14:26 CT abd pelvis IV con only Stat Hospital Course (1) Acute appendicitis: This is a 42yM who presented to the [facility] ED on 06/15/23 with abdominal pain. Workup in the ED showed a WBC of 11.[address] a/p concerning for acute appendicitis. The patient was tender to palpation in the RLQ. Patient made NPO with IVF and booked for the OR. On 06/15 the patient went to the OR with Dr. Portillo for a laparoscopic appendectomy. The patient tolerated the procedure well, see operative report for full details. He was given a clear liquid diet and prn IV + PO pain meds were ordered. On POD#1 the patient's diet was advanced to regular. Patient doing well however adjustments were made in his pain regimen to obtain better pain control. WBC 13. Decision was made to monitor him for another night to ensure pain controlled and WBC improving. On POD#2 patient's WBC normal at 8. His Hbg dropped from 11.1 to 8.8, therefore it was repeated in the afternoon and remained stable at 8.7. Vitals stable. The patient was tolerating a regular diet and his pain was under better control than the previous day. The patient felt well and he was deemed stable for discharge to home with instructions to follow up in clinic within 2 weeks. Total Time Total Time Spent Total Time Spent (In Minutes): 10 Discharge Plan Discharge Items Patient Disposition: Home - Self-Care Reason For Visit: APPY Discharge Diagnosis: Appendicitis Activity: As commented below Activity Comment: Walk daily Lifting: No more than 10 pounds Bathing Comment: may shower; no soaking in tubs/pools x 2 weeks Exercise/Sports: Wait until after follow-up appointment Driving/Machine Use: no driving if taking narcotics for paion Non-emergency contact: Surgeon Call non-emergency contact if: you have any medication questions, your pain is not controlled, you have a fever, your temperature is above 101.5, your wound has increased redness, your wound has increased drainage and your wound pain has increased Follow-up/Referrals: Pro,Merlin Boss MD [Primary Care Provider] - Emigdio Portillo DO [Surgeon] - 06/27/23 9:15 am (Call office for appointment in 1-2 weeks) Diet: Regular Addtl Attending Provider Instructions: Call office with any questions You have skin glue over your incisions called dermabond. you may shower with this on. It will tend to dissolve and fall off within a couple weeks. Do not pick at the skin glue You may purchase Tylenol and/or Ibuprofen over the counter if needed for additional pain control over the next few days. Take per manufacturers ins tructions Do not take plain Tylenol while you are taking the narcotic Percocet for pain. They both contain Acetaminophen and you should not exceed >3grams of Acetaminophen within a 24 hour time period Pending Studies at Discharge: No Stand-Alone Forms: [facility] [employer], Pain - Opioid Pain Management, Smoking Cessation Medications and DC Order Prescriptions: Continued dextroamphetamine-amphetamine [Adderall] 20 mg tablet 20 mg PO DAILY PRN (Reason: ADD) Qty: 30 0RF Rx Instructions: in addition to adderall xr in am Supervising Dr. Merlin Gan MD [facility] [id number] Ongoing therapy No Action dextroamphetamine-amphetamine [Adderall XR] 20 mg capsule,extended release 24hr 20 mg PO DAILY PRN (Reason: NEEDED PER PT'S SPOUSE) Rx Instructions: in addition to adderal short acting later day Supervising Dr. Merlin Gan MD [facility] [id number] Ongoing therapy oxycodone-acetaminophen [Percocet] 5-325 mg tablet 2 tab PO Q4H PRN (Reason: pain) Qty: 20 0RF Discharge Orders: Discharge Order (Routine); Ordered 06/15/23 Ordered By: Emigdio Raymond/Other Patient Handouts: DVT Post Op Prevention Admission Data Admit Date/Time: 06/13/23 22:03 Attending Provider: Emigdio Portillo Admit Provider: Emigdio Portillo Primary Care Provider: Merlin Gan Other Interventions: Discharge Summary Assessment (RN) Last Done: 06/15/23 13:47 Coding Level of Care Code 39792 IN/OBS DISCH 30 MIN/LESS Diagnoses Acute appendicitis K35.80
== END 2023-06-15 15:49 | disposition home or self-care (01) ==
LOC: ED 14:19 → OR 20:31 → 3N 22:03 → INTOOBSV 22:03 → 3N 06-14 06:12
DX: Z79.899 Other long term (current) drug therapy; K35.30 Acute appendicitis with localized peritonitis, without perforation or gangrene; Z88.1 Allergy status to other antibiotic agents

== ENCOUNTER 2023-06-15 20:08 | Observation (INO) ==
[2023-06-15] MEDS ORDERED: OPTIRAY 320 500ml IV ONE (20:44)
[2023-06-15] MEDS ORDERED: PIPERACILLIN/TAZOBACTAM 4.5 GM/100 ML BAG IV ONE (20:46)
[2023-06-15] MEDS ORDERED: SODIUM CHLORIDE 0.9% 500 ML IV ONE (20:46)
[2023-06-15] MEDS ORDERED: SODIUM CHLORIDE 0.9% 2,000 ML IV ONE (20:46)
[2023-06-15 20:53] LABS: iSTAT Creatinine 0.7 mg/dl (0.6-1.3); iSTAT Hemoglobin 10.5 g/dl (14.0-18.0); iSTAT Ionized Calcium 1.14 mmol/l (1.12-1.32); iSTAT Potassium 3.5 mmol/L (3.3-5.0)
[2023-06-15] MEDS ORDERED: fentaNYL citrate PF 100 MCG/2 ML VIAL IV STA (21:01)
[2023-06-15 21:07] LABS: INR 0.9 (0.9-1.1); Partial Thromboplastin Time 28 Seconds (21-31); Prothrombin Time 10.3 Seconds (9.0-12.0)
[2023-06-15 21:11] LABS: Basophils # (auto) 0.02 K/uL (0.00-0.20); Basophils % (auto) 0.2 %; Eosinophils # (auto) 0.03 K/uL (0.00-0.50); Eosinophils % (auto) 0.3 %; Hematocrit (blood only) 27.6 % (42.0-52.0); Hemoglobin 9.9 g/dl (14.0-18.0); Immature Granulocytes # (auto) 0.02 K/uL (0.01-0.20); Immature Granulocytes % (auto) 0.2 %; Lymphocytes # (auto) 1.14 K/uL (1.20-3.40); Lymphocytes % (auto) 13.2 %; Mean Corpuscular Hemoglobin 32.6 pg (25.0-34.0); Mean Corpuscular Hgb Conc 35.9 g/dL (32.0-36.0); Mean Corpuscular Volume 90.8 fL (80.0-100.0); Mean Platelet Volume 9.6 fL (9.4-12.4); Neutrophils # (auto) 6.82 K/uL (1.40-6.50); Neutrophils % (auto) 79.1 %; Platelet Count 277 K/uL (130-400); RDW Coefficient of Variation 11.9 % (11.5-14.5); RDW Standard Deviation 39.9 fL (36.4-46.3); Red Blood Count 3.04 M/uL (4.70-6.10); White Blood Count 8.63 K/ul (4.8-10.8)
[2023-06-15 21:31] LABS: Troponin I High Sensitivity 4.5 pg/ml (0-20)
--- NOTE | 2023-06-15 21:34 | CT Scan Report ---
Exam(s): CT ABDOMEN + PELVIS With Contrast IV Amt: 84 ml optiray 320 EXAM: CT Abdomen and Pelvis With Intravenous Contrast CLINICAL HISTORY: Reason for exam: abdominal pain, recent appy. TECHNIQUE: Axial computed tomography images of the abdomen and pelvis with intravenous contrast. CTDI is 25.42 mGy and DLP is 1443.52 mGy-cm. Automated exposure control was utilized for the study. A dose lowering technique was utilized adhering to the principles of ALARA. CONTRAST: Patient received 84 ml optiray 320 of IV contrast COMPARISON: No relevant prior studies available. FINDINGS: Lung bases: Consolidation of the RIGHT lung base, concerning for aspiration pneumonia. ABDOMEN: Liver: Unremarkable. No focal hepatic lesion. Gallbladder and bile ducts: Unremarkable. No calcified stones. No ductal dilation. Pancreas: Unremarkable. No mass. No ductal dilation. Spleen: Unremarkable. No splenomegaly. Adrenals: Unremarkable. No mass. Kidneys and ureters: Nonobstructing 5 mm RIGHT mid pole renal stone. Stomach and bowel: Unremarkable. No obstruction. No mucosal thickening. PELVIS: Appendix: Appendectomy. No postoperative abscess. Bladder: Decompressed urinary bladder. Reproductive: Unremarkable as visualized. ABDOMEN and PELVIS: Intraperitoneal space: Unremarkable. No free air. No significant fluid collection. Bones/joints: No acute fracture. No dislocation. Soft tissues: LEFT rectus sheath hematoma, measures approximately 10.4 x 4.9 x 3.6 cm. Blood products are present subjacent the pelvis. Active bleeding cannot be excluded without contrast. Consider repeat CTA exam. Vasculature: Unremarkable. No abdominal aortic aneurysm. Lymph nodes: Unremarkable. No enlarged lymph nodes. IMPRESSION: 1. LEFT rectus sheath hematoma, measures approximately 10.4 x 4.9 x 3.6 cm. Blood products are present subjacent the pelvis. Active bleeding cannot be excluded without contrast. Consider repeat CTA exam. 2. Appendectomy. No postoperative abscess. Electronically signed by: Jigar Eric MD 06/15/23 21:33 PM
[2023-06-15 21:35] LABS: Bilirubin,Total 0.7 mg/dl (0.2-1.0); Calcium 8.8 mg/dl (8.6-10.3); Magnesium 1.8 mg/dl (1.7-2.4); Potassium 3.7 mmol/L (3.5-5.1)
[2023-06-15] MEDS ORDERED: MoRPHine SULFATE 4 MG/ML 1 ML CARP\\VIAL IV STA (21:39)
[2023-06-15 21:40] LABS: Albumin Globulin Ratio 1.4 (0.9-2); BUN Creatinine Ratio 10.6 (10-20); Creatinine Clr Calc Pharmacy 135.6 ml/min; Est GFR (African American) 124.6 ml/min; Est GFR (Non-African American) 107.5 ml/min; Globulin 2.8 gm/dl (2.5-4.0); Total Protein 6.8 gm/dl (6.0-8.3)
[2023-06-15 21:47] LABS: Adenovirus PCR Not Detected (NotDetected); Bordetella parapertussis PCR Not Detected (NotDetected); Bordetella pertussis PCR Not Detected (NotDetected); Chlamydia pneumoniae PCR Not Detected (NotDetected); Coronavirus 229E PCR Not Detected (NotDetected); Coronavirus CoV-2 (COVID19)PCR Not Detected (NotDetected); Coronavirus HKU1 PCR Not Detected (NotDetected); Coronavirus NL63 PCR Not Detected (NotDetected); Coronavirus OC43PCR Not Detected (NotDetected); Human Metapneumovirus PCR Not Detected (NotDetected); Influenza A PCR Not Detected (NotDetected); Influenza B PCR Not Detected (NotDetected); Mycoplasma pneumoniae PCR Not Detected (NotDetected); Parainfluenza Virus 1 PCR Not Detected (NotDetected); Parainfluenza Virus 2 PCR Not Detected (NotDetected); Parainfluenza Virus 3 PCR Not Detected (NotDetected); Parainfluenza Virus 4 PCR Not Detected (NotDetected); Respiratory Syncytial VirusPCR Not Detected (NotDetected); Rhinovirus/Enterovirus PCR Not Detected (NotDetected)
--- NOTE | 2023-06-15 21:47 | Emergency Department Note ---
Impression & Plan Abdominal wall hematoma, Fever, Tachycardia ED Provider Note HISTORY OF PRESENT ILLNESS: Patient is a 43-year-old male presenting with abdominal pain. Patient had an appendectomy 2 days ago and was discharged today around 1530. He reports that he got home and took a Percocet pain medication and took a nap. However, he woke up from his nap he had significant pain diffusely throughout his abdomen. Pain is worse with any sort of movement. Reports nausea but no vomiting. Denies any chest pain or shortness of breath. He reports a fever at home and did not take any antipyretics prior to arrival. ROS: as above PHYSICAL EXAM: Constitutional: Patient appears in no acute distress. HENT: Head: Normocephalic and atraumatic. Eyes: EOMI, PERRL Mouth/Throat: Mucous membranes moist. Neck: Trachea midline. Neck supple. Cardiovascular: Tachycardic with regular rhythm. No murmurs, rubs or gallops. Intact distal pulses. Pulmonary/Chest: No respiratory distress. Breath sounds clear and equal bilaterally. No wheezes or rales. Abdominal: Abdomen soft, no rebound or guarding. Generalized tenderness to palpation. Musculoskeletal: No edema, tenderness or deformity noted. Skin: Warm and dry. No rash, erythema, pallor or cyanosis Psychiatric: Appropriate mood and affect for situation. Neurological: Alert and keenly responsive. CN II-XII grossly intact, moving all extremities equally and fully. MDM: - Vitals signs showed tachycardia and fever. - History obtained via patient. Patient presents with postoperative abdominal pain. Patient had an appendectomy 2 days ago. Was discharged today around 1430 and took a Percocet pain medication when he got home. However, he woke from a nap and had significant abdominal pain that was worse with movement. Reports nausea but no vomiting. Had a fever at home prior to arrival in the ER. - Chronic conditions affecting care: none - Differential diagnoses include, but are not limited to: post operative infection; abscess; intra-abdominal hemorrhage; viral syndrome - Order placed for continuous cardiac monitoring. At this time, monitor showed rate of 118 bpm with normal sinus rhythm, per my interpretation. - External medical records reviewed. H&P from surgery dated 06/13/2023 was reviewed. Patient was admitted for acute appendicitis - EKG interpreted by myself showed normal sinus rhythm. Rate tachycardic at 126 bpm. QT 286. No acute ischemic changes - Laboratory workup interpreted by myself showed normal WBC; improved hemoglobin (9.9); stable electrolytes; normal lactate; normal troponin; normal procalcitonin - CXR negative for pneumonia, per my interpretation - Respiratory panel negative - CT abdomen/pelvis wo contrast showed left rectus sheath hematoma measuring 10.4 x 4.9 x 3.6 cm. Noted to have appendectomy but no postoperative abscess. - Patient given 2L NS, empiric zosyn and 50 mcg IV fentanyl for pain control. On reassessment, patient complaining of continued pain. Given additional 500 cc NS and 4 mg IV morphine. - Discussed case with surgeon wet cotton feeder, Dr. Gudino. Plans to admit to his service. - Patient admitted to General surgery service for further evaluation and management. ASSESSMENT AND PLAN: Diagnosis: abdominal wall hematoma; fever; tachycardia Plan: discharge Past Med/Surg History Medical History (Updated 06/15/23 @ 22:37 by Maame Diamond MD) Encounter for pre-operative examination ADD (attention deficit disorder) Surgical History (Updated 06/14/23 @ 13:29 by Ca Holcomb RN) History of laparoscopic appendectomy (06/14/23) Laparoscopic Appendectomy, Enterolysis(Not Applicable) - Emigdio Portillo, DO No pertinent past surgical history Family History Mother Gastric cancer Grandfather Gastric cancer Denies family history of Colon cancer Ovarian cancer Prostate cancer Myocardial infarction Breast cancer Stroke Social History Smoking Status: Never smoker Age Started Using Tobacco: 17; Age Quit Using Tobacco: 28; packs per day: 1; Cigarettes Per Day: 20 to 30 a day for 11 years; Second Hand Exposure: No; Do You Dip or Chew Tobacco: No; Hx Alcohol Use: Yes Alcohol type: beer Hx Substance Use: No Preferred Language: Azeri Communication Ability: Effective Visual Impairment: No Limitations Hearing Ability: Normal Brick Shader Required: No Beliefs That Will Affect Care: None marital status: Current Living Situation: Spouse current occupational status: employed 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 Feels Safe at Home: Yes Childhood Exposure to Second-Hand Smoke: No Dental Care, Regularly: Yes Physical Activity Frequency: 3-4 Times per Week Seatbelt Use: always Assistive Devices: None Allergies Allergies Allergy/AdvReac Type Severity Reaction Status Date / Time clarithromycin [From Biaxin] Allergy Unknown CAN'T Verified 06/15/23 22:03 REMEMBER Home Meds Home Medications Medication Instructions Recorded Confirmed dextroamphetamine-amphetamine ER 20 mg PO DAILY PRN NEEDED PER 06/15/23 06/15/23 20 mg 24hr capsule,extend release PT'S SPOUSE (Adderall XR) Previous Rx's Medication Instructions Recorded dextroamphetamine-amphetamine 20 20 mg PO DAILY PRN ADD #30 tabs 05/31/23 mg tablet (Adderall) Results & Data (ED) Vital Signs Vital Signs - 24 hr 06/15/23 20:11 Temperature 38.2 C H Temperature Source Oral Pulse Rate 123 H Pulse Rhythm Regular Pulse Strength Normal Respiratory Rate 20 Respiratory Effort / Characteristics Non-Labored Spontaneous Respiratory Depth Normal Respiratory Pattern Regular Blood Pressure 139/74 Blood Pressure Mean 95 Blood Pressure Position Sitting Pulse Oximetry 99 Oxygen Delivery Method Room Air Sepsis Recent Fever Within 48 Hours Yes Sepsis New/Unexplained Change in Mental Status N/A Sepsis Action Taken by Nursing No Action Required Laboratory Data 06/15/23 20:27 06/15/23 20:27 Lab Results 06/15/23 06/15/23 06/15/23 Range/Units 20:20 20:27 20:40 WBC 8.63 (4.8-10.8) K/ul RBC 3.04 L (4.70-6.10) M/uL Hgb 9.9 L (14.0-18.0) g/dl POC Hgb 10.5 L (14.0-18.0) g/dl Hct 27.6 L (42.0-52.0) % POC Hct 31 L (42-52) % MCV 90.8 (80.0-100.0) fL MCH 32.6 (25.0-34.0) pg MCHC 35.9 (32.0-36.0) g/dL RDW Std Deviation 39.9 (36.4-46.3) fL RDW Coeff of Doni 11.9 (11.5-14.5) % Plt Count 277 (130-400) K/uL MPV 9.6 (9.4-12.4) fL Immature Gran % (Auto) 0.2 % Neut % (Auto) 79.1 % Lymph % (Auto) 13.2 % Hardin % (Auto) 7.0 % Eos % (Auto) 0.3 % Baso % (Auto) 0.2 % Neut # (Auto) 6.82 H (1.40-6.50) K/uL Lymph # (Auto) 1.14 L (1.20-3.40) K/uL Hardin # (Auto) 0.60 H (0.11-0.59) K/uL Eos # (Auto) 0.03 (0.00-0.50) K/uL Baso # (Auto) 0.02 (0.00-0.20) K/uL Immature Gran # (Auto) 0.02 (0.01-0.20) K/uL PT 10.3 (9.0-12.0) Seconds INR 0.9 (0.9-1.1) APTT 28 (21-31) Seconds PTT Ratio 1.0 POC Sodium 135 (135-144) mmol/L Sodium 132 L (136-145) mmol/L POC Potassium 3.5 (3.3-5.0) mmol/L Potassium 3.7 (3.5-5.1) mmol/L POC Chloride 100 L (101-112) mmol/L Chloride 101 (98-107) mmol/L Carbon Dioxide 23 (21-32) mmol/L POC Total CO2 19 L (24-31) mmol/L Anion Gap 8 (3-11) POC Anion Gap 20.0 (16-25) mmol/L POC BUN 7 (7-18) mg/dl BUN 9 (6-23) mg/dl Creatinine 0.85 (0.6-1.4) mg/dl POC Creatinine 0.7 (0.6-1.3) mg/dl Est Cr Clr Drug Dosing 135.6 ml/min Est GFR ( Amer) 124.6 ml/min Est GFR (Non-Af Amer) 107.5 ml/min BUN/Creatinine Ratio 10.6 (10-20) Glucose 101 H (70-99(Fasting)) mg/dl POC Glucose (other) 94 (70-99) mg/dl Lactate (0.4-2.0) mmol/L Calcium 8.8 (8.6-10.3) mg/dl POC Ioniz Calcium Wilmer 1.14 (1.12-1.32) mmol/l Magnesium 1.8 (1.7-2.4) mg/dl Total Bilirubin 0.7 (0.2-1.0) mg/dl AST 16 (13-39) U/L ALT 21 (7-52) U/L Alkaline Phosphatase 71 (34-104) U/L Troponin I High Sens 4.5 (0-20) pg/ml Total Protein 6.8 (6.0-8.3) gm/dl Albumin 4.0 (3.4-5.0) gm/dl Globulin 2.8 (2.5-4.0) gm/dl Albumin/Globulin Ratio 1.4 (0.9-2) Procalcitonin 0.46 (0-0.5) ng/ml Adenovirus (PCR) Not Detected (NotDetected) B. pertussis DNA (PCR) Not Detected (NotDetected) B.parapertussis DNA PCR Not Detected (NotDetected) C. pneumoniae DNA (PCR) Not Detected (NotDetected) Coronavirus OC43 (PCR) Not Detected (NotDetected) Coronavirus HKU1 (PCR) Not Detected (NotDetected) Coronavirus 229E (PCR) Not Detected (NotDetected) SARS-CoV-2 (PCR) Not Detected (NotDetected) Coronavirus NL63 (PCR) Not Detected (NotDetected) Human Metapneumovir PCR Not Detected (NotDetected) Influenza Type A (PCR) Not Detected (NotDetected) Influenza Type B (PCR) Not Detected (NotDetected) M. pneumoniae (PCR) Not Detected (NotDetected) Parainfluenza 1 (PCR) Not Detected (NotDetected) Parainfluenza 2 (PCR) Not Detected (NotDetected) Parainfluenza 3 (PCR) Not Detected (NotDetected) Parainfluenza 4 (PCR) Not Detected (NotDetected) RSV (PCR) Not Detected (NotDetected) Entero/Rhino (PCR) Not Detected (NotDetected) 06/15/23 Range/Units 21:28 WBC (4.8-10.8) K/ul RBC (4.70-6.10) M/uL Hgb (14.0-18.0) g/dl POC Hgb (14.0-18.0) g/dl Hct (42.0-52.0) % POC Hct (42-52) % MCV (80.0-100.0) fL MCH (25.0-34.0) pg MCHC (32.0-36.0) g/dL RDW Std Deviation (36.4-46.3) fL RDW Coeff of Doni (11.5-14.5) % Plt Count (130-400) K/uL MPV (9.4-12.4) fL Immature Gran % (Auto) % Neut % (Auto) % Lymph % (Auto) % Hardin % (Auto) % Eos % (Auto) % Baso % (Auto) % Neut # (Auto) (1.40-6.50) K/uL Lymph # (Auto) (1.20-3.40) K/uL Hardin # (Auto) (0.11-0.59) K/uL Eos # (Auto) (0.00-0.50) K/uL Baso # (Auto) (0.00-0.20) K/uL Immature Gran # (Auto) (0.01-0.20) K/uL PT (9.0-12.0) Seconds INR (0.9-1.1) APTT (21-31) Seconds PTT Ratio POC Sodium (135-144) mmol/L Sodium (136-145) mmol/L POC Potassium (3.3-5.0) mmol/L Potassium (3.5-5.1) mmol/L POC Chloride (101-112) mmol/L Chloride (98-107) mmol/L Carbon Dioxide (21-32) mmol/L POC Total CO2 (24-31) mmol/L Anion Gap (3-11) POC Anion Gap (16-25) mmol/L POC BUN (7-18) mg/dl BUN (6-23) mg/dl Creatinine (0.6-1.4) mg/dl POC Creatinine (0.6-1.3) mg/dl Est Cr Clr Drug Dosing ml/min Est GFR ( Amer) ml/min Est GFR (Non-Af Amer) ml/min BUN/Creatinine Ratio (10-20) Glucose (70-99(Fasting)) mg/dl POC Glucose (other) (70-99) mg/dl Lactate 1.3 (0.4-2.0) mmol/L Calcium (8.6-10.3) mg/dl POC Ioniz Calcium Wilmer (1.12-1.32) mmol/l Magnesium (1.7-2.4) mg/dl Total Bilirubin (0.2-1.0) mg/dl AST (13-39) U/L ALT (7-52) U/L Alkaline Phosphatase (34-104) U/L Troponin I High Sens (0-20) pg/ml Total Protein (6.0-8.3) gm/dl Albumin (3.4-5.0) gm/dl Globulin (2.5-4.0) gm/dl Albumin/Globulin Ratio (0.9-2) Procalcitonin (0-0.5) ng/ml Adenovirus (PCR) (NotDetected) B. pertussis DNA (PCR) (NotDetected) B.parapertussis DNA PCR (NotDetected) C. pneumoniae DNA (PCR) (NotDetected) Coronavirus OC43 (PCR) (NotDetected) Coronavirus HKU1 (PCR) (NotDetected) Coronavirus 229E (PCR) (NotDetected) SARS-CoV-2 (PCR) (NotDetected) Coronavirus NL63 (PCR) (NotDetected) Human Metapneumovir PCR (NotDetected) Influenza Type A (PCR) (NotDetected) Influenza Type B (PCR) (NotDetected) M. pneumoniae (PCR) (NotDetected) Parainfluenza 1 (PCR) (NotDetected) Parainfluenza 2 (PCR) (NotDetected) Parainfluenza 3 (PCR) (NotDetected) Parainfluenza 4 (PCR) (NotDetected) RSV (PCR) (NotDetected) Entero/Rhino (PCR) (NotDetected) Administered Medications Sodium Chloride (Nss) 2,000 mls @ 999 mls/hr IV .Q2H1M ONE Stop: 06/15/23 22:46 Last Admin: 06/15/23 21:06 Dose: 999 mls/hr Documented By: HH Discontinued Medications Fentanyl Citrate (Fentanyl Citrate Pf 100 Mcg/2 Ml Vial) 50 mcg IV NOW STA Stop: 06/15/23 21:02 Last Admin: 06/15/23 21:04 Dose: 50 mcg Documented By: JEANMARIE Sodium Chloride (Nss) 500 mls @ 999 mls/hr IV .Q31M ONE Stop: 06/15/23 21:16 Last Admin: 06/15/23 22:16 Dose: 999 mls/hr Documented By: JEANMARIE Piperacillin Sod/Tazobactam Sod (Zosyn) 4.5 gm in 100 mls @ 200 mls/hr IV NOW ONE Stop: 06/15/23 21:15 Last Infusion: 06/15/23 22:13 Dose: Infused Documented By: Admin: 06/15/23 21:04 Dose: 200 mls/hr Documented By: JEANMARIE Ioversol (Optiray 320 500ml) 84 ml IV ONCE ONE Stop: 06/15/23 20:45 Last Admin: 06/15/23 20:45 Dose: 84 ml Documented By: GISELA Morphine Sulfate (Morphine Sulfate 4 Mg/Ml 1 Ml Carp\Vial) 4 mg IV NOW STA Stop: 06/15/23 21:40 Last Admin: 06/15/23 21:57 Dose: 4 mg Documented By: JEANMARIE Imaging Data Radiologist's Impression: Abdomen/Pelvis CT 06/15/23 20:23 Exam(s): CT ABDOMEN + PELVIS With Contrast IV Amt: 84 ml optiray 320 EXAM: CT Abdomen and Pelvis With Intravenous Contrast CLINICAL HISTORY: Reason for exam: abdominal pain, recent appy. TECHNIQUE: Axial computed tomography images of the abdomen and pelvis with intravenous contrast. CTDI is 25.42 mGy and DLP is 1443.52 mGy-cm. Automated exposure control was utilized for the study. A dose lowering technique was utilized adhering to the principles of ALARA. CONTRAST: Patient received 84 ml optiray 320 of IV contrast COMPARISON: No relevant prior studies available. FINDINGS: Lung bases: Consolidation of the RIGHT lung base, concerning for aspiration pneumonia. ABDOMEN: Liver: Unremarkable. No focal hepatic lesion. Gallbladder and bile ducts: Unremarkable. No calcified stones. No ductal dilation. Pancreas: Unremarkable. No mass. No ductal dilation. Spleen: Unremarkable. No splenomegaly. Adrenals: Unremarkable. No mass. Kidneys and ureters: Nonobstructing 5 mm RIGHT mid pole renal stone. Stomach and bowel: Unremarkable. No obstruction. No mucosal thickening. PELVIS: Appendix: Appendectomy. No postoperative abscess. Bladder: Decompressed urinary bladder. Reproductive: Unremarkable as visualized. ABDOMEN and PELVIS: Intraperitoneal space: Unremarkable. No free air. No significant fluid collection. Bones/joints: No acute fracture. No dislocation. Soft tissues: LEFT rectus sheath hematoma, measures approximately 10.4 x 4.9 x 3.6 cm. Blood products are present subjacent the pelvis. Active bleeding cannot be excluded without contrast. Consider repeat CTA exam. Vasculature: Unremarkable. No abdominal aortic aneurysm. Lymph nodes: Unremarkable. No enlarged lymph nodes. IMPRESSION: 1. LEFT rectus sheath hematoma, measures approximately 10.4 x 4.9 x 3.6 cm. Blood products are present subjacent the pelvis. Active bleeding cannot be excluded without contrast. Consider repeat CTA exam. 2. Appendectomy. No postoperative abscess. Electronically signed by: Jigar Eric MD 06/15/23 21:33 PM Discharge Plan Visit Data Chief Complaint: Abdominal Pain Stated Complaint: APPENDECTOMY, NAUSEA,SWELLING,ABD PAIN,BLOATED ED Provider: Maame Diamond Discharge Problem: Abdominal wall hematoma, Fever, Tachycardia Forms Stand Alone Forms: [employer] Prescriptions Prescriptions: No Action dextroamphetamine-amphetamine [Adderall] 20 mg tablet 20 mg PO DAILY PRN (Reason: ADD) Qty: 30 0RF Rx Instructions: in addition to adderall xr in am Supervising Dr. Merlin Gan MD [facility] [id number] Ongoing therapy dextroamphetamine-amphetamine [Adderall XR] 20 mg capsule,extended release 24hr 20 mg PO DAILY PRN (Reason: NEEDED PER PT'S SPOUSE) Rx Instructions: in addition to adderal short acting later day Supervising Dr. Merlin Gan MD [facility] [id number] Ongoing therapy Referrals Referrals: Merlin Gan MD [Primary Care Provider] -
--- NOTE | 2023-06-15 22:41 | History & Physical Report ---
Date of Service June 15, 2023 Assessment & Plan (1) Abdominal wall hematoma: (2) Postoperative pain: Plan 42-year-old gentleman 2 days status post laparoscopic appendectomy Benjamin presents to the hospital with increasing pain and fever. CT scan demonstrates rectus sheath hematoma as well as abdominal wall hematoma. Hemoglobin is stable from this morning. We will admit him for pain control and observation. Will recheck labs in the morning. All his questions were answered and he is agreeable with the plan. History of Present Illness Primary Care Provider: Merlin Gan MD 42-year-old gentleman 2 days status post laparoscopic appendectomy, discharged to home this afternoon presents to the hospital this evening with increasing severe lower abdominal pain. Since being at home, he developed nausea, distention, fever. He is very uncomfortable. Passing flatus and bowel movement this afternoon. In the emergency department, temperature 38.2, white blood cell count normal, hemoglobin up to 9, CT scan with left-sided rectus sheath hematoma but no intra-abdominal abnormalities. Operative site appears normal without evidence of leak or abscess. Allergies Allergy/AdvReac Type Severity Reaction Status Date / Time clarithromycin [From Biaxin] Allergy Unknown CAN'T Verified 06/15/23 22:03 REMEMBER Home Medications Medication Instructions Recorded Confirmed Type dextroamphetamine-amphetamine 20 20 mg PO DAILY PRN ADD #30 tabs 05/31/23 06/15/23 Rx mg tablet (Adderall) dextroamphetamine-amphetamine ER 20 mg PO DAILY PRN NEEDED PER 06/15/23 06/15/23 History 20 mg 24hr capsule,extend release PT'S SPOUSE (Adderall XR) Past Med/Surg History Medical History Encounter for pre-operative examination ADD (attention deficit disorder) Surgical History History of laparoscopic appendectomy (06/14/23) Laparoscopic Appendectomy, Enterolysis(Not Applicable) - Emigdio Portillo, DO No pertinent past surgical history Family History Mother Gastric cancer Grandfather Gastric cancer Denies family history of Colon cancer Ovarian cancer Prostate cancer Myocardial infarction Breast cancer Stroke Social History Smoking Status: Never smoker Age Started Using Tobacco: 17; Age Quit Using Tobacco: 28; packs per day: 1; Cigarettes Per Day: 20 to 30 a day for 11 years; Second Hand Exposure: No; Do You Dip or Chew Tobacco: No; Hx Alcohol Use: Yes Alcohol type: beer Hx Substance Use: No Preferred Language: [place] Communication Ability: Effective Visual Impairment: No Limitations Hearing Ability: Normal [employer] Required: No Beliefs That Will Affect Care: None marital status: Current Living Situation: Spouse current occupational status: employed 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 Feels Safe at Home: Yes Childhood Exposure to Second-Hand Smoke: No Dental Care, Regularly: Yes Physical Activity Frequency: 3-4 Times per Week Seatbelt Use: always Assistive Devices: None Review of Systems Review of Systems: All systems reviewed & are unremarkable except as noted in HPI & below Physical Exam Constitutional: WD/WN, vitals as above Eyes: PERRL, conjunctivae normal, anicteric sclerae Neck: trachea midline, no thyromegaly Respiratory: normal respiratory effort; no respiratory distress and no labored breathing Cardiovascular: Rate/Rhythm: regular rate and regular rhythm Gastrointestinal (Abdomen): Inspection/Auscultation: abdomen normal to inspection and + abdomen distended (Mild) Percussion/Palpation: + abdomen tender (Diffuse, greater in lower abdomen) and abdomen soft; no guarding and abdomen not rigid Skin: no rashes, warm and dry Psychiatric: A+Ox3, euthymic affect Results & Data Results & Data Vital Signs (Past 12 Hours) Vital Signs Temp Pulse Resp BP Pulse Ox O2 Del Method 06/15/23 20:11 38.2 C H 123 H 20 139/74 99 Room Air Laboratory Results 06/15/23 06/15/23 06/15/23 Range/Units 21:28 20:40 20:27 WBC 8.63 (4.8-10.8) K/ul RBC 3.04 L (4.70-6.10) M/uL Hgb 9.9 L (14.0-18.0) g/dl POC Hgb 10.5 L (14.0-18.0) g/dl Hct 27.6 L (42.0-52.0) % POC Hct 31 L (42-52) % MCV 90.8 (80.0-100.0) fL MCH 32.6 (25.0-34.0) pg MCHC 35.9 (32.0-36.0) g/dL RDW Std Deviation 39.9 (36.4-46.3) fL RDW Coeff of Doni 11.9 (11.5-14.5) % Plt Count 277 (130-400) K/uL MPV 9.6 (9.4-12.4) fL Immature Gran % (Auto) 0.2 % Neut % (Auto) 79.1 % Lymph % (Auto) 13.2 % [place] % (Auto) 7.0 % Eos % (Auto) 0.3 % Baso % (Auto) 0.2 % Neut # (Auto) 6.82 H (1.40-6.50) K/uL Lymph # (Auto) 1.14 L (1.20-3.40) K/uL [place] # (Auto) 0.60 H (0.11-0.59) K/uL Eos # (Auto) 0.03 (0.00-0.50) K/uL Baso # (Auto) 0.02 (0.00-0.20) K/uL Immature Gran # (Auto) 0.02 (0.01-0.20) K/uL PT 10.3 (9.0-12.0) Seconds INR 0.9 (0.9-1.1) APTT 28 (21-31) Seconds PTT Ratio 1.0 POC Sodium 135 (135-144) mmol/L Sodium 132 L (136-145) mmol/L POC Potassium 3.5 (3.3-5.0) mmol/L Potassium 3.7 (3.5-5.1) mmol/L POC Chloride 100 L (101-112) mmol/L Chloride 101 (98-107) mmol/L Carbon Dioxide 23 (21-32) mmol/L POC Total CO2 19 L (24-31) mmol/L Anion Gap 8 (3-11) POC Anion Gap 20.0 (16-25) mmol/L POC BUN 7 (7-18) mg/dl BUN 9 (6-23) mg/dl Creatinine 0.85 (0.6-1.4) mg/dl POC Creatinine 0.7 (0.6-1.3) mg/dl Est Cr Clr Drug Dosing 135.6 ml/min Est GFR ( Amer) 124.6 ml/min Est GFR (Non-Af Amer) 107.5 ml/min BUN/Creatinine Ratio 10.6 (10-20) Glucose 101 H (70-99(Fasting)) mg/dl POC Glucose (other) 94 (70-99) mg/dl Lactate 1.3 (0.4-2.0) mmol/L Calcium 8.8 (8.6-10.3) mg/dl POC Ioniz Calcium Wilmer 1.14 (1.12-1.32) mmol/l Magnesium 1.8 (1.7-2.4) mg/dl Total Bilirubin 0.7 (0.2-1.0) mg/dl AST 16 (13-39) U/L ALT 21 (7-52) U/L Alkaline Phosphatase 71 (34-104) U/L Troponin I High Sens 4.5 (0-20) pg/ml Total Protein 6.8 (6.0-8.3) gm/dl Albumin 4.0 (3.4-5.0) gm/dl Globulin 2.8 (2.5-4.0) gm/dl Albumin/Globulin Ratio 1.4 (0.9-2) Procalcitonin 0.46 (0-0.5) ng/ml Adenovirus (PCR) (NotDetected) B. pertussis DNA (PCR) (NotDetected) B.parapertussis DNA PCR (NotDetected) C. pneumoniae DNA (PCR) (NotDetected) Coronavirus OC43 (PCR) (NotDetected) Coronavirus HKU1 (PCR) (NotDetected) Coronavirus 229E (PCR) (NotDetected) SARS-CoV-2 (PCR) (NotDetected) Coronavirus NL63 (PCR) (NotDetected) Human Metapneumovir PCR (NotDetected) Influenza Type A (PCR) (NotDetected) Influenza Type B (PCR) (NotDetected) M. pneumoniae (PCR) (NotDetected) Parainfluenza 1 (PCR) (NotDetected) Parainfluenza 2 (PCR) (NotDetected) Parainfluenza 3 (PCR) (NotDetected) Parainfluenza 4 (PCR) (NotDetected) RSV (PCR) (NotDetected) Entero/Rhino (PCR) (NotDetected) 06/15/23 Range/Units 20:20 WBC (4.8-10.8) K/ul RBC (4.70-6.10) M/uL Hgb (14.0-18.0) g/dl POC Hgb (14.0-18.0) g/dl Hct (42.0-52.0) % POC Hct (42-52) % MCV (80.0-100.0) fL MCH (25.0-34.0) pg MCHC (32.0-36.0) g/dL RDW Std Deviation (36.4-46.3) fL RDW Coeff of Doni (11.5-14.5) % Plt Count (130-400) K/uL MPV (9.4-12.4) fL Immature Gran % (Auto) % Neut % (Auto) % Lymph % (Auto) % [place] % (Auto) % Eos % (Auto) % Baso % (Auto) % Neut # (Auto) (1.40-6.50) K/uL Lymph # (Auto) (1.20-3.40) K/uL [place] # (Auto) (0.11-0.59) K/uL Eos # (Auto) (0.00-0.50) K/uL Baso # (Auto) (0.00-0.20) K/uL Immature Gran # (Auto) (0.01-0.20) K/uL PT (9.0-12.0) Seconds INR (0.9-1.1) APTT (21-31) Seconds PTT Ratio POC Sodium (135-144) mmol/L Sodium (136-145) mmol/L POC Potassium (3.3-5.0) mmol/L Potassium (3.5-5.1) mmol/L POC Chloride (101-112) mmol/L Chloride (98-107) mmol/L Carbon Dioxide (21-32) mmol/L POC Total CO2 (24-31) mmol/L Anion Gap (3-11) POC Anion Gap (16-25) mmol/L POC BUN (7-18) mg/dl BUN (6-23) mg/dl Creatinine (0.6-1.4) mg/dl POC Creatinine (0.6-1.3) mg/dl Est Cr Clr Drug Dosing ml/min Est GFR ( Amer) ml/min Est GFR (Non-Af Amer) ml/min BUN/Creatinine Ratio (10-20) Glucose (70-99(Fasting)) mg/dl POC Glucose (other) (70-99) mg/dl Lactate (0.4-2.0) mmol/L Calcium (8.6-10.3) mg/dl POC Ioniz Calcium Wilmer (1.12-1.32) mmol/l Magnesium (1.7-2.4) mg/dl Total Bilirubin (0.2-1.0) mg/dl AST (13-39) U/L ALT (7-52) U/L Alkaline Phosphatase (34-104) U/L Troponin I High Sens (0-20) pg/ml Total Protein (6.0-8.3) gm/dl Albumin (3.4-5.0) gm/dl Globulin (2.5-4.0) gm/dl Albumin/Globulin Ratio (0.9-2) Procalcitonin (0-0.5) ng/ml Adenovirus (PCR) Not Detected (NotDetected) B. pertussis DNA (PCR) Not Detected (NotDetected) B.parapertussis DNA PCR Not Detected (NotDetected) C. pneumoniae DNA (PCR) Not Detected (NotDetected) Coronavirus OC43 (PCR) Not Detected (NotDetected) Coronavirus HKU1 (PCR) Not Detected (NotDetected) Coronavirus 229E (PCR) Not Detected (NotDetected) SARS-CoV-2 (PCR) Not Detected (NotDetected) Coronavirus NL63 (PCR) Not Detected (NotDetected) Human Metapneumovir PCR Not Detected (NotDetected) Influenza Type A (PCR) Not Detected (NotDetected) Influenza Type B (PCR) Not Detected (NotDetected) M. pneumoniae (PCR) Not Detected (NotDetected) Parainfluenza 1 (PCR) Not Detected (NotDetected) Parainfluenza 2 (PCR) Not Detected (NotDetected) Parainfluenza 3 (PCR) Not Detected (NotDetected) Parainfluenza 4 (PCR) Not Detected (NotDetected) RSV (PCR) Not Detected (NotDetected) Entero/Rhino (PCR) Not Detected (NotDetected) Diagnostic Findings Exam(s): CT ABDOMEN + PELVIS With Contrast IV Amt: 84 ml optiray 320 EXAM: CT Abdomen and Pelvis With Intravenous Contrast CLINICAL HISTORY: Reason for exam: abdominal pain, recent appy. TECHNIQUE: Axial computed tomography images of the abdomen and pelvis with intravenous contrast. CTDI is 25.42 mGy and DLP is 1443.52 mGy-cm. Automated exposure control was utilized for the study. A dose lowering technique was utilized adhering to the principles of ALARA. CONTRAST: Patient received 84 ml optiray 320 of IV contrast COMPARISON: No relevant prior studies available. FINDINGS: Lung bases: Consolidation of the RIGHT lung base, concerning for aspiration pneumonia. ABDOMEN: Liver: Unremarkable. No focal hepatic lesion. Gallbladder and bile ducts: Unremarkable. No calcified stones. No ductal dilation. Pancreas: Unremarkable. No mass. No ductal dilation. Spleen: Unremarkable. No splenomegaly. Adrenals: Unremarkable. No mass. Kidneys and ureters: Nonobstructing 5 mm RIGHT mid pole renal stone. Stomach and bowel: Unremarkable. No obstruction. No mucosal thickening. PELVIS: Appendix: Appendectomy. No postoperative abscess. Bladder: Decompressed urinary bladder. Reproductive: Unremarkable as visualized. ABDOMEN and PELVIS: Intraperitoneal space: Unremarkable. No free air. No significant fluid collection. Bones/joints: No acute fracture. No dislocation. Soft tissues: LEFT rectus sheath hematoma, measures approximately 10.4 x 4.9 x 3.6 cm. Blood products are present subjacent the pelvis. Active bleeding cannot be excluded without contrast. Consider repeat CTA exam. Vasculature: Unremarkable. No abdominal aortic aneurysm. Lymph nodes: Unremarkable. No enlarged lymph nodes. IMPRESSION: 1. LEFT rectus sheath hematoma, measures approximately 10.4 x 4.9 x 3.6 cm. Blood products are present subjacent the pelvis. Active bleeding cannot be excluded without contrast. Consider repeat CTA exam. 2. Appendectomy. No postoperative abscess. Electronically signed by: Jigar Eric MD 06/15/23 21:33 PM Code Status & VTE Plan VTE Prophylaxis Plan VTE Prophylaxis will be ordered: Yes (1) Abdominal wall hematoma Encounter type: initial encounter Qualified Code(s): S30.1XXA - Contusion of abdominal wall, initial encounter
[2023-06-15] MEDS ORDERED: PROMETHAZINE HCL 12.5 MG in SODIUM CHLORIDE 0.9% 50 ML IV PRN (23:31)
[2023-06-15] MEDS ORDERED: ONDANSETRON INJ 2 MG/ML 2 ML VIAL IV PRN (23:31)
[2023-06-15] MEDS ORDERED: diphenhydrAMINE Capsule 25 MG CAP PO PRN (23:31)
[2023-06-15] MEDS ORDERED: MoRPHine SULFATE 2 MG/ML CARP IV PRN (23:31)
[2023-06-16] MEDS: oxyCODONE/ACETAMINOPHEN 5mg/325mg TAB PO PRN ×4 (00:22→14:16)
--- NOTE | 2023-06-16 02:25 | Surgery Progress Note ---
Date of Service June 16, 2023 Assessment & Plan (1) Postoperative pain: (2) Abdominal wall hematoma: Plan POD #3 s/p laparoscopic appendectomy, readmitted with abdominal wall and rectus sheath hematoma/pain Improving pain Continue IV and p.o. pain medications Recheck labs today Encourage ambulation Advance diet as tolerated Admission and Anticipated Discharge Date Admission Date: June 15, 2023 Subjective Significant improvement in pain from last evening. Still complaining of sharp stabbing pain in the lower abdomen. No nausea or vomiting Physical Exam Physical Exam: NAD, A&O x 3 Afebrile, slight tachycardia, blood pressure stable and normal Abdomen: Soft, mild distention, mild to moderate TTP in left abdomen Incisions clean/dry/intact; Dermabond intact Results & Data Vital Signs (Past 12 Hours) Vital Signs Temp Pulse Pulse Pulse Resp BP BP 06/15/23 23:31 06/15/23 23:31 06/15/23 23:31 06/15/23 23:31 37 C 110 H 18 119/61 06/15/23 23:31 37 C 110 H 18 119/61 06/15/23 22:50 112 H 18 152/79 H 06/15/23 20:11 38.2 C H 123 H 20 139/74 Pulse Ox Pulse Ox O2 Del Method O2 Del Method 06/15/23 23:31 98 Room Air 06/15/23 23:31 Room Air 06/15/23 23:31 Room Air 06/15/23 23:31 98 Room Air 06/15/23 23:31 98 Room Air 06/15/23 22:50 95 Room Air 06/15/23 20:11 99 Room Air (2) Abdominal wall hematoma Encounter type: initial encounter Qualified Code(s): S30.1XXA - Contusion of abdominal wall, initial encounter
[2023-06-16 02:27] LABS: Appearance Urine Clear (Clear); Bilirubin Urine Negative (Negative); Blood Urine Negative (Negative); Color Urine Yellow; Glucose Urine UA Negative (Negative); Ketones Urine 2+ (Negative); Leukocyte Esterase Urine Negative (Negative); Nitrite Urine Negative (Negative); Protein Urine Negative (Negative); Urobilinogen Urine Negative (Negative); pH Urine 8.5 (4.5-7.5)
[2023-06-16 06:42] LABS: Basophils # (auto) 0.02 K/uL (0.00-0.20); Basophils % (auto) 0.3 %; Eosinophils # (auto) 0.05 K/uL (0.00-0.50); Eosinophils % (auto) 0.7 %; Hematocrit (blood only) 27.4 % (42.0-52.0); Hemoglobin 9.5 g/dl (14.0-18.0); Immature Granulocytes # (auto) 0.04 K/uL (0.01-0.20); Immature Granulocytes % (auto) 0.5 %; Lymphocytes # (auto) 1.89 K/uL (1.20-3.40); Lymphocytes % (auto) 24.8 %; Mean Corpuscular Hgb Conc 34.7 g/dL (32.0-36.0); Mean Corpuscular Volume 92.3 fL (80.0-100.0); Mean Platelet Volume 9.2 fL (9.4-12.4); Monocytes # (auto) 0.77 K/uL (0.11-0.59); Monocytes % (auto) 10.1 %; Neutrophils # (auto) 4.85 K/uL (1.40-6.50); Neutrophils % (auto) 63.6 %; Platelet Count 259 K/uL (130-400); RDW Standard Deviation 40.5 fL (36.4-46.3); Red Blood Count 2.97 M/uL (4.70-6.10); White Blood Count 7.62 K/ul (4.8-10.8)
[2023-06-16 07:00] LABS: BUN Creatinine Ratio 8.3 (10-20); Calcium 8.7 mg/dl (8.6-10.3); Creatinine Clr Calc Pharmacy 137.1 ml/min; Est GFR (African American) 125.2 ml/min; Potassium 3.9 mmol/L (3.5-5.1)
--- NOTE | 2023-06-16 10:20 | Electrocardiogram Report ---
Test Reason : Blood Pressure : / mmHG Vent. Rate : 126 BPM Atrial Rate : 126 BPM P-R Int : 168 ms QRS Dur : 072 ms QT Int : 286 ms P-R-T Axes : 046 042 046 degrees QTc Int : 414 ms Sinus tachycardia Otherwise normal ECG When compared with ECG of 13-JUN-2023 15:53, Vent. rate has increased BY 46 BPM Confirmed by Merlin Rae ([id number]) on 06/16/2023 10:19:35 AM Referred By: REFERRED SELF Confirmed By:Merlin Rae
--- NOTE | 2023-06-16 10:35 | XRay Report ---
XR chest 1V not portable CLINICAL HISTORY: Sepsis TECHNIQUE: Single frontal radiograph of the chest was obtained. Comparison: Comparison is made to chest radiograph 06/13/[address] abdomen pelvis 06/15/2023 FINDINGS: No lines and tubes are seen. The cardiomediastinal silhouette is normal. Lungs are underinflated. Den sity right lower lung compatible with atelectasis versus scarring seen on prior CT abdomen pelvis. No evidence of pleural effusion or pneumothorax. IMPRESSION: No acute abnormalities and in particular no radiographic evidence of pneumonia. ACT 112: Negative or not required by law. Electronically signed by: Osmin Pal M.D. 06/16/2023 10:34 AM
--- NOTE | 2023-06-18 12:06 | Discharge Summary ---
Date of Service June 18, 2023 Admission HPI Per Admitting Provider 42-year-old gentleman 2 days status post laparoscopic appendectomy, discharged to home this afternoon presents to the hospital this evening with increasing severe lower abdominal pain. Since being at home, he developed nausea, distention, fever. He is very uncomfortable. Passing flatus and bowel movement this afternoon. In the emergency department, temperature 38.2, white blood cell count normal, hemoglobin up to 9, CT scan with left-sided rectus sheath hematoma but no intra-abdominal abnormalities. Operative site appears normal without evidence of leak or abscess. Principal Diagnosis Postop rectus sheath hematoma Discharge Data Allergies Allergy/AdvReac Type Severity Reaction Status Date / Time clarithromycin [From Biaxin] Allergy Unknown CAN'T Verified 06/15/23 22:03 REMEMBER Consultations 06/15/23 21:42 ED Decision to Admit Stat Ordered Studies 06/15/23 20:23 CT abd pelvis IV con only Stat Hospital Course (1) Abdominal wall hematoma: This 42-year-old gentleman who underwent laparoscopic appendectomy 2 days prior. He presented to the ED with severe pain in the left side. CT scan demonstrated an abdominal wall and rectus sheath hematoma. He was admitted for pain control and observation. His hemoglobin and hematocrit remained stable throughout the hospital course. His pain was controlled with IV pain medications and subsequently with oral pain medications. By the day of discharge, his hemoglobin hematocrit were stable, and he was not requiring any IV pain medications and was on a good p.o. pain regimen. He was discharged home in stable condition. He will follow-up with Dr. Portillo in 1 to 2 weeks. Total Time Total Time Spent Total Time Spent (In Minutes): Less than 30 minutes Discharge Plan Discharge Items Patient Disposition: Home - Self-Care Reason For Visit: POSTOPERATIVE PAIN Discharge Diagnosis: post op pain after lap appendectomy; rectus sheath hematoma Activity: Per Instructions section Lifting: No more than 10 pounds Sexual Activity: Wait until after follow-up appointment Exercise/Sports: Wait until after follow-up appointment Non-emergency contact: Primary Care Provider and Surgeon Call non-emergency contact if: you have any medication questions, your symptoms worsen, your pain is not controlled, your pain is worsening, your pain is unusual for you, your temperature is above 101.5, your wound has increased redness, your wound has increased drainage and your wound pain has increased Follow-up/Referrals: Merlin Gan MD [Primary Care Provider] - Diet: Regular Addtl Attending Provider Instructions: Post-Surgical ~Discharge Instructions Activity Recommendations: - lifting limitation: (10 pounds for 2 weeks), - exercise/sex/sports limit: (nonstrenuous for 2 weeks), - driving or machine use limit: (none for 1 week), - Shower/bathe limit: (may shower beginning tomorrow) Diet: - Resume previous diet SPECIAL CARE INSTRUCTIONS: - May shower as usual. Let water run over area and pat dry. - Leave dermabond on for one week. - Call the surgeon's office with any questions or concerns - - (ex. temperature higher than 101 degrees F, excessive bleeding or pain). MEDICATIONS: - Resume previous medications unless instructed otherwise by your surgeon. - Percocet 2 every 4 hours, as needed for pain FOLLOW UP VISIT: - please call Dr. Portillo's office on Sunday for appointment Pending Studies at Discharge: No Stand-Alone Forms: My [facility] [employer] Game, Smoking Cessation Medications and DC Order Prescriptions: New oxycodone-acetaminophen [Percocet] 5-325 mg tablet 2 tab PO Q4H PRN (Reason: pain) Qty: 20 0RF Continued dextroamphetamine-amphetamine [Adderall] 20 mg tablet 20 mg PO DAILY PRN (Reason: ADD) Qty: 30 0RF Rx Instructions: in addition to adderall xr in am Supervising Dr. Merlin Gan MD JAROD [id number] Ongoing therapy dextroamphetamine-amphetamine [Adderall XR] 20 mg capsule,extended release 24hr 20 mg PO DAILY PRN (Reason: NEEDED PER PT'S SPOUSE) Rx Instructions: in addition to adderal short acting later day Supervising Dr. Merlin Gan MD JAROD [id number] Ongoing therapy Discharge Orders: Discharge Order (Routine); Ordered 06/16/23 Ordered By: Gerber Raymond/Other Patient Handouts: Oxycodone/Acetaminophen Oral Tablet Admission Data Admit Date/Time: 06/15/23 22:34 Attending Provider: Gerber Gudino Admit Provider: Gerber Gudino Primary Care Provider: Merlin Gan Other Providers: Gerber Gudino Other Interventions: Discharge Summary Assessment (RN) Last Done: 06/16/23 11:47
== END 2023-06-16 16:01 | disposition home or self-care (01) ==
LOC: ED 20:08 → 3N 20:08